=== PATIENT | male | born 1965 | race African-American/Black ===

== ENCOUNTER 2018-01-09 13:33 | Inpatient (IN) | payer MEDICAID ==
[~2018-01-09] VITALS: Ht 180.3 cm; Wt 149.9 kg
[2018-01-09] MEDS ORDERED: DIPH50 PO (14:49)
[2018-01-09] MEDS ORDERED: OLAN7.5T2 PO (14:49)
[2018-01-09 15:06] LABS: BASOPHILS % (AUTO) 0.9 % (0.0-2.0); EOSINOPHILS % (AUTO) 1.1 % (1.0-6.0); HEMOGLOBIN 13.2 g/dL (13.5-17.5); LYMPHOCYTES # (AUTO) 1.9 K/uL (1.0-4.8); LYMPHOCYTES % (AUTO) 22.8 % (22.0-44.0); MEAN CORPUSCULAR HGB CONC 33.9 G/dL (31.0-37.0); MEAN CORPUSCULAR VOLUME 86 fL (80-100); MONOCYTES % (AUTO) 12.2 % (2.0-9.0); NEUTROPHILS # (AUTO) 5.2 K/uL (1.8-7.7); PLATELET COUNT (AUTO) 274 K/uL (150-450); RED BLOOD CELL COUNT(AUTO) 4.56 MIL/uL (4.50-5.90); RED CELL DISTRIBUTION WIDTH 13.7 % (11.5-14.5)
[2018-01-09 15:47] LABS: ANION GAP 11 mmol/L (8-16); CALCIUM, TOTAL 8.8 mg/dL (8.8-10.5); CARBON DIOXIDE 26 mmol/L (22-29); CHLORIDE 103 mmol/L (98-107); CREATININE 1.25 mg/dL (0.60-1.30); GLOMERULAR FILTR. RATE CALC > 60 mL/min (>60); GLUCOSE,RANDOM 99 mg/dL (70-110); POTASSIUM 3.9 mmol/L (3.5-5.1); SODIUM SERUM 140 mmol/L (136-145); UREA NITROGEN, BLOOD 21 mg/dL (7-18)
[2018-01-09 15:53] LABS: ALANINE AMINOTRANSFERASE 42 U/L (12-78); ALBUMIN 3.6 g/dL (3.4-5.0); ALKALINE PHOSPHATASE 133 U/L (46-116); ASPARTATE AMINOTRANSFERASE 37 U/L (15-37); BILIRUBIN,TOTAL 0.6 mg/dL (0.1-1.0); TOTAL PROTEIN, SERUM 7.8 g/dL (6.4-8.2)
[2018-01-09 16:14] LABS: AMPHET/METH SCREEN,URINE NEGATIVE (NEGATIVE); BARBITURATE SCREEN, URINE NEGATIVE (NEGATIVE); BENZODIAZEPINES SCREEN,URINE NEGATIVE (NEGATIVE); CANNABINOID SCREEN,URINE POSITIVE (NEGATIVE); COCAINE SCREEN,URINE NEGATIVE (NEGATIVE); METHADONE SCREEN, URINE NEGATIVE (NEGATIVE); OPIATE SCREEN,URINE NEGATIVE (NEGATIVE)
[2018-01-09 16:16] LABS: PHENCYCLIDINE SCREEN,URINE NEGATIVE (NEGATIVE)
[2018-01-09] MEDS ORDERED: LORazepam 2 MG TABLET PO ONE (17:00)
[2018-01-09] MEDS ORDERED: OLANZapine 5 MG TABLET PO ONE (17:00)
[2018-01-09] MEDS ORDERED: DiphenhydrAMINE HCL 25 MG CAPSULE PO ONE (17:00)
[2018-01-09] MEDS ORDERED: HALOPERIDOL 5 MG TABLET PO PRN (19:00)
[2018-01-09 21:02] VITALS: BP 147/94
[2018-01-09] MEDS ORDERED: ACETAMINOPHEN 325 MG TABLET PO PRN (22:45)
[2018-01-09] MEDS ORDERED: MAGNESIUM HYDROXIDE SUSPENSION 30 ML UDCUP PO PRN (22:45)
[2018-01-09] MEDS ORDERED: ALBUTEROL SULFATE HFA 90 MCG/PUFF 8 GM INHALER IH PRN (22:45)
[2018-01-09] MEDS ORDERED: PETROLATUM,WHITE 71 GM JELLY TP PRN (22:45)
[2018-01-09] MEDS ORDERED: BENZOCAINE/MENTHOL LOZENGE MM PRN (22:45)
[2018-01-09] MEDS ORDERED: MAG HYDROX/AL HYDROX/SIMETH ES 30 ML SUSPENSION UDCUP PO PRN (22:45)
[2018-01-09] MEDS ORDERED: ONDANSETRON HCL 4 MG TABLET PO PRN (22:45)
[2018-01-09] MEDS ORDERED: LOPERAMIDE HCL 2 MG CAPSULE PO PRN (22:45)
[2018-01-09] MEDS ORDERED: BACITRACIN 28.4 GM OINTMENT TP PRN (22:45)
[2018-01-09] MEDS ORDERED: CloNIDine HCL 0.1 MG TABLET PO PRN (22:45)
[2018-01-10 02:05] VITALS: BP 134/90
[2018-01-10] MEDS: LORazepam 2 MG TABLET PO PRN (06:28)
[2018-01-10 06:31] VITALS: BP 159/71
[2018-01-10 07:13] LABS: CHOL/HDL RATIO 2.9 (4.2-7.3)
[2018-01-10] MEDS ORDERED: LISINOPRIL 10 MG TABLET PO SCH (09:00)
[2018-01-10] MEDS: DOCUSATE SODIUM 100 MG CAPSULE PO SCH (09:23)
[2018-01-10] MEDS: OMEPRAZOLE 20 MG CAPSULE PO SCH (09:23)
[2018-01-10] MEDS: NICOTINE 21 MG/24 HOUR PATCH TD SCH (09:27)
[2018-01-10] MEDS: IBUPROFEN 600 MG TABLET PO PRN (09:49)
[2018-01-10 09:50] VITALS: BP 147/77
[2018-01-10] MEDS: OLANZapine 7.5 MG TABLET PO SCH (16:14)
[2018-01-10] MEDS: DiphenhydrAMINE HCL 25 MG CAPSULE PO SCH (16:14)
[2018-01-10 17:17] VITALS: BP 164/115
[2018-01-10] MEDS ORDERED: AmLODIPine BESYLATE 5 MG TABLET PO ONE (18:15)
[2018-01-10] MEDS: ZOLPIDEM TARTRATE 10 MG TABLET PO PRN (20:19)
[2018-01-11] VITALS (7 sets, daily range): BP systolic 100–154; BP diastolic 67–95
[2018-01-11] MEDS: IBUPROFEN 600 MG TABLET PO PRN ×2 (06:53→16:16)
[2018-01-11] MEDS: LOSARTAN POTASSIUM 25 MG TABLET PO SCH (08:16)
[2018-01-11] MEDS: DiphenhydrAMINE HCL 25 MG CAPSULE PO SCH ×2 (08:16→16:12)
[2018-01-11] MEDS: HYDROCHLOROTHIAZIDE 25 MG TABLET PO SCH (08:16)
[2018-01-11] MEDS: NICOTINE 21 MG/24 HOUR PATCH TD SCH (08:16)
[2018-01-11] MEDS: FUROSEMIDE 20 MG TABLET PO SCH (08:16)
[2018-01-11] MEDS: OLANZapine 7.5 MG TABLET PO SCH ×2 (08:16→16:13)
[2018-01-11] MEDS: DOCUSATE SODIUM 100 MG CAPSULE PO SCH (08:16)
[2018-01-11] MEDS: OMEPRAZOLE 20 MG CAPSULE PO SCH (08:16)
[2018-01-11] MEDS: AmLODIPine BESYLATE 5 MG TABLET PO SCH (08:16)
[2018-01-11] MEDS: ZOLPIDEM TARTRATE 10 MG TABLET PO PRN (20:09)
[2018-01-11] MEDS ORDERED: NAPROXEN 500 MG TABLET PO PRN (20:15)
[2018-01-12 03:20] VITALS: BP 132/86
[2018-01-12 06:49] LABS: % IRON SATURATION 12.9 % (30-44)
[2018-01-12] MEDS: FUROSEMIDE 20 MG TABLET PO SCH (08:02)
[2018-01-12] MEDS: LOSARTAN POTASSIUM 25 MG TABLET PO SCH (08:02)
[2018-01-12] MEDS: DOCUSATE SODIUM 100 MG CAPSULE PO SCH (08:02)
[2018-01-12] MEDS: OLANZapine 7.5 MG TABLET PO SCH (08:02)
[2018-01-12] MEDS: AmLODIPine BESYLATE 5 MG TABLET PO SCH (08:02)
[2018-01-12] MEDS: DiphenhydrAMINE HCL 25 MG CAPSULE PO SCH (08:02)
[2018-01-12] MEDS: HYDROCHLOROTHIAZIDE 25 MG TABLET PO SCH (08:02)
[2018-01-12] MEDS: OMEPRAZOLE 20 MG CAPSULE PO SCH (08:02)
[2018-01-12] MEDS: LORazepam 2 MG TABLET PO PRN (08:03)
[2018-01-12] MEDS: NICOTINE 21 MG/24 HOUR PATCH TD SCH (08:03)
[2018-01-12] MEDS ORDERED: MOMETASONE FUROATE 50 MCG/SPRAY 17 GM NASAL SPRAY NASAL SCH (09:00)
[2018-01-12] MEDS ORDERED: AMLO-511 PO (10:27)
[2018-01-12] MEDS ORDERED: FURO20 PO (10:27)
[2018-01-12] MEDS ORDERED: DSS100 PO (10:27)
[2018-01-12] MEDS ORDERED: HYDR25TA PO (10:28)
[2018-01-12] MEDS ORDERED: LOSA25TA21 PO (10:28)
[2018-01-12] MEDS ORDERED: OMEP20 PO (10:29)
[2018-01-12] MEDS ORDERED: MOME17N NASAL (10:29)
[2018-01-12 10:37] VITALS: BP 145/76
== END 2018-01-12 13:10 | disposition home or self-care (01) | DRG 750 ==
LOC: EMS 13:33 → 3EI 19:55
PROVIDERS: ADMIT Psychiatry & Neurology Psychiatry; ATTEND Psychiatry & Neurology Psychiatry
DX: F25.9 Schizoaffective disorder, unspecified (principal); R45.851 Suicidal ideations; Z68.41 Body mass index [BMI] 40.0-44.9, adult; I10 Essential (primary) hypertension; F17.210 Nicotine dependence, cigarettes, uncomplicated; D50.9 Iron deficiency anemia, unspecified; R45.850 Homicidal ideations; F41.9 Anxiety disorder, unspecified; G47.00 Insomnia, unspecified; J44.9 Chronic obstructive pulmonary disease, unspecified; M19.90 Unspecified osteoarthritis, unspecified site; E66.9 Obesity, unspecified; F12.90 Cannabis use, unspecified, uncomplicated; Z91.19 Patient's noncompliance with other medical treatment and regimen; Z88.8 Allergy status to other drugs, medicaments and biological substances; Z79.899 Other long term (current) drug therapy; Z79.1 Long term (current) use of non-steroidal anti-inflammatories (NSAID); Z79.2 Long term (current) use of antibiotics; Z59.0 Homelessness
CPT/HCPCS: 83540; 83550; 99285; G0480

== ENCOUNTER 2018-01-13 04:14 | Inpatient (IN) | payer MEDICAID ==
[~2018-01-13] VITALS: Ht 180.3 cm; Wt 145.1 kg
[~2018-01-13 04:14] MED LIST: AMLO-511 PO; DIPH50 PO; DSS100 PO; FURO20 PO; HYDR25TA PO; LOSA25TA21 PO; MOME17N NASAL; OLAN7.5T2 PO; OMEP20 PO
[2018-01-13 04:59] LABS: AMPHET/METH SCREEN,URINE NEGATIVE (NEGATIVE); BARBITURATE SCREEN, URINE NEGATIVE (NEGATIVE); BENZODIAZEPINES SCREEN,URINE NEGATIVE (NEGATIVE); CANNABINOID SCREEN,URINE NEGATIVE (NEGATIVE); COCAINE SCREEN,URINE NEGATIVE (NEGATIVE); METHADONE SCREEN, URINE NEGATIVE (NEGATIVE); OPIATE SCREEN,URINE NEGATIVE (NEGATIVE)
[2018-01-13 05:00] LABS: PHENCYCLIDINE SCREEN,URINE NEGATIVE (NEGATIVE)
[2018-01-13 05:00] LABS: EOSINOPHILS % (AUTO) 0.4 % (1.0-6.0); HEMATOCRIT 43.3 % (41-53); HEMOGLOBIN 14.7 g/dL (13.5-17.5); LYMPHOCYTES # (AUTO) 2.1 K/uL (1.0-4.8); LYMPHOCYTES % (AUTO) 15.9 % (22.0-44.0); MEAN CORPUSCULAR HEMOGLOBIN 28.8 pg (26.0-34.0); MEAN CORPUSCULAR HGB CONC 33.9 G/dL (31.0-37.0); MEAN CORPUSCULAR VOLUME 85 fL (80-100); MONOCYTES # (AUTO) 1.6 K/uL (0.1-1.0); MONOCYTES % (AUTO) 12.6 % (2.0-9.0); NEUTROPHILS # (AUTO) 9.1 K/uL (1.8-7.7); NEUTROPHILS % (AUTO) 70.1 % (40.0-70.0); PLATELET COUNT (AUTO) 335 K/uL (150-450); RED CELL DISTRIBUTION WIDTH 13.9 % (11.5-14.5)
[2018-01-13 05:06] LABS: ANION GAP 8 mmol/L (8-16); CALCIUM, TOTAL 9.3 mg/dL (8.8-10.5); CARBON DIOXIDE 31 mmol/L (22-29); CHLORIDE 101 mmol/L (98-107); CREATININE 1.21 mg/dL (0.60-1.30); GLOMERULAR FILTR. RATE CALC > 60 mL/min (>60); GLUCOSE,RANDOM 100 mg/dL (70-110); SODIUM SERUM 140 mmol/L (136-145); UREA NITROGEN, BLOOD 15 mg/dL (7-18)
[2018-01-13 05:11] LABS: ALANINE AMINOTRANSFERASE 39 U/L (12-78); ALBUMIN 4.2 g/dL (3.4-5.0); ALKALINE PHOSPHATASE 149 U/L (46-116); ASPARTATE AMINOTRANSFERASE 24 U/L (15-37); BILIRUBIN,TOTAL 0.6 mg/dL (0.1-1.0); TOTAL PROTEIN, SERUM 8.8 g/dL (6.4-8.2)
[2018-01-13 10:50] VITALS: BP 161/76
[2018-01-13] MEDS ORDERED: NAPROXEN 500 MG TABLET PO PRN (11:00)
[2018-01-13] MEDS ORDERED: OMEPRAZOLE 20 MG CAPSULE PO SCH (11:00)
[2018-01-13] MEDS ORDERED: CloNIDine HCL 0.1 MG TABLET PO PRN (11:00)
[2018-01-13] MEDS: DIVALPROEX SODIUM 500 MG ER TABLET PO SCH ×2 (11:34→16:50)
[2018-01-13] MEDS: AmLODIPine BESYLATE 5 MG TABLET PO SCH (11:34)
[2018-01-13] MEDS: NICOTINE 21 MG/24 HOUR PATCH TD SCH (11:34)
[2018-01-13] MEDS: HYDROCHLOROTHIAZIDE 25 MG TABLET PO SCH (11:34)
[2018-01-13] MEDS: FUROSEMIDE 20 MG TABLET PO SCH (11:34)
[2018-01-13] MEDS ORDERED: ALBUTEROL SULFATE HFA 90 MCG/PUFF 8 GM INHALER IH PRN (11:45)
[2018-01-13] MEDS ORDERED: ACETAMINOPHEN 325 MG TABLET PO PRN (11:45)
[2018-01-13] MEDS: LOSARTAN POTASSIUM 25 MG TABLET PO SCH (12:42)
[2018-01-13] MEDS ORDERED: LORazepam 2 MG/ML VIAL IM ONE (14:15)
[2018-01-13] MEDS ORDERED: DiphenhydrAMINE HCL 50 MG/ML VIAL IM ONE (14:15)
[2018-01-13] MEDS ORDERED: DiphenhydrAMINE HCL 50 MG/ML VIAL ONE (14:20)
[2018-01-13] MEDS: OLANZapine 5 MG RAPDIS TABLET PO PRN (14:29)
[2018-01-13] MEDS: LORazepam 2 MG TABLET PO PRN (14:29)
[2018-01-13 15:20] VITALS: BP 137/84
[2018-01-13 16:00] VITALS: BP 115/73
[2018-01-14] MEDS ORDERED: MAGNESIUM HYDROXIDE SUSPENSION 30 ML UDCUP PO PRN
[2018-01-14] MEDS ORDERED: LOPERAMIDE HCL 2 MG CAPSULE PO PRN
[2018-01-14] MEDS ORDERED: PETROLATUM,WHITE 71 GM JELLY TP PRN
[2018-01-14] MEDS ORDERED: ONDANSETRON HCL 4 MG TABLET PO PRN
[2018-01-14] MEDS ORDERED: CloNIDine HCL 0.1 MG TABLET PO PRN
[2018-01-14] MEDS ORDERED: MAG HYDROX/AL HYDROX/SIMETH ES 30 ML SUSPENSION UDCUP PO PRN
[2018-01-14] MEDS ORDERED: BENZOCAINE/MENTHOL LOZENGE MM PRN
[2018-01-14 01:48] VITALS: BP 145/63
[2018-01-14] MEDS: IBUPROFEN 600 MG TABLET PO PRN (01:50)
[2018-01-14] MEDS: OLANZapine 5 MG RAPDIS TABLET PO PRN ×2 (03:26→16:13)
[2018-01-14] MEDS: LORazepam 2 MG TABLET PO PRN ×2 (03:26→16:13)
[2018-01-14] MEDS: DIVALPROEX SODIUM 500 MG ER TABLET PO SCH ×2 (08:20→16:13)
[2018-01-14] MEDS: FUROSEMIDE 20 MG TABLET PO SCH (08:20)
[2018-01-14] MEDS: HYDROCHLOROTHIAZIDE 25 MG TABLET PO SCH (08:20)
[2018-01-14] MEDS: LOSARTAN POTASSIUM 25 MG TABLET PO SCH (08:21)
[2018-01-14] MEDS: OMEPRAZOLE 20 MG CAPSULE PO SCH (08:21)
[2018-01-14] MEDS: AmLODIPine BESYLATE 5 MG TABLET PO SCH (08:21)
[2018-01-14] MEDS: DOCUSATE SODIUM 100 MG CAPSULE PO SCH (08:21)
[2018-01-14] MEDS: NICOTINE 21 MG/24 HOUR PATCH TD SCH (08:21)
[2018-01-14 08:30] VITALS: BP 139/72
[2018-01-14] MEDS: BACITRACIN 28.4 GM OINTMENT TP PRN (10:23)
[2018-01-14 16:05] VITALS: BP 125/78
[2018-01-14] MEDS: BUDESONIDE/FORMOTEROL FUMARATE 80-4.5 MCG/PUFF 6.9 GM INHALER IH SCH (16:11)
[2018-01-14] MEDS ORDERED: FORMOTEROL FUMARATE IH SCH (17:00)
[2018-01-14] MEDS: ZOLPIDEM TARTRATE 10 MG TABLET PO PRN (23:34)
[2018-01-15 01:17] VITALS: BP 136/89
[2018-01-15] MEDS: IBUPROFEN 600 MG TABLET PO PRN ×2 (03:57→20:38)
[2018-01-15] MEDS: LORazepam 2 MG TABLET PO PRN ×2 (03:57→17:17)
[2018-01-15] MEDS: OLANZapine 5 MG RAPDIS TABLET PO PRN ×2 (05:01→17:17)
[2018-01-15] MEDS: DOCUSATE SODIUM 100 MG CAPSULE PO SCH (08:03)
[2018-01-15] MEDS: BUDESONIDE/FORMOTEROL FUMARATE 80-4.5 MCG/PUFF 6.9 GM INHALER IH SCH ×2 (08:03→16:57)
[2018-01-15] MEDS: NICOTINE 21 MG/24 HOUR PATCH TD SCH (08:03)
[2018-01-15] MEDS: DIVALPROEX SODIUM 500 MG ER TABLET PO SCH ×2 (08:03→16:57)
[2018-01-15] MEDS: HYDROCHLOROTHIAZIDE 25 MG TABLET PO SCH (08:03)
[2018-01-15] MEDS: AmLODIPine BESYLATE 5 MG TABLET PO SCH (08:03)
[2018-01-15] MEDS: BACITRACIN 28.4 GM OINTMENT TP PRN (08:03)
[2018-01-15] MEDS: FUROSEMIDE 20 MG TABLET PO SCH (08:03)
[2018-01-15] MEDS: OMEPRAZOLE 20 MG CAPSULE PO SCH (08:03)
[2018-01-15] MEDS: LOSARTAN POTASSIUM 25 MG TABLET PO SCH (08:04)
[2018-01-15 08:22] VITALS: BP 132/81
[2018-01-15 08:48] LABS: BASOPHILS % (AUTO) 1.3 % (0.0-2.0); EOSINOPHILS % (AUTO) 2.1 % (1.0-6.0); HEMATOCRIT 40.6 % (41-53); HEMOGLOBIN 13.8 g/dL (13.5-17.5); LYMPHOCYTES # (AUTO) 1.9 K/uL (1.0-4.8); LYMPHOCYTES % (AUTO) 22.1 % (22.0-44.0); MEAN CORPUSCULAR HEMOGLOBIN 28.8 pg (26.0-34.0); MEAN CORPUSCULAR HGB CONC 33.9 G/dL (31.0-37.0); MEAN CORPUSCULAR VOLUME 85 fL (80-100); MONOCYTES # (AUTO) 0.8 K/uL (0.1-1.0); MONOCYTES % (AUTO) 9.9 % (2.0-9.0); NEUTROPHILS # (AUTO) 5.5 K/uL (1.8-7.7); NEUTROPHILS % (AUTO) 64.6 % (40.0-70.0); PLATELET COUNT (AUTO) 307 K/uL (150-450); RED BLOOD CELL COUNT(AUTO) 4.77 MIL/uL (4.50-5.90)
[2018-01-15] MEDS: MUPIROCIN CALCIUM 2% 22 GM OINTMENT NASAL SCH ×2 (11:44→16:58)
[2018-01-15] MEDS: TAMSULOSIN HCL 0.4 MG CAPSULE PO SCH (14:05)
[2018-01-15 16:36] VITALS: BP 141/95
[2018-01-15] MEDS: ZOLPIDEM TARTRATE 10 MG TABLET PO PRN (20:38)
[2018-01-16 01:34] VITALS: BP 135/77
[2018-01-16] MEDS: LORazepam 2 MG TABLET PO PRN ×2 (01:38→12:20)
[2018-01-16] MEDS: OLANZapine 5 MG RAPDIS TABLET PO PRN (01:38)
[2018-01-16] MEDS: IBUPROFEN 600 MG TABLET PO PRN (01:39)
[2018-01-16 08:04] VITALS: BP 148/92
[2018-01-16] MEDS: BUDESONIDE/FORMOTEROL FUMARATE 80-4.5 MCG/PUFF 6.9 GM INHALER IH SCH ×2 (08:04→16:16)
[2018-01-16] MEDS: MUPIROCIN CALCIUM 2% 22 GM OINTMENT NASAL SCH ×2 (08:04→16:16)
[2018-01-16] MEDS: DIVALPROEX SODIUM 500 MG ER TABLET PO SCH ×2 (08:05→16:21)
[2018-01-16] MEDS: AmLODIPine BESYLATE 5 MG TABLET PO SCH (08:05)
[2018-01-16] MEDS: FUROSEMIDE 20 MG TABLET PO SCH (08:05)
[2018-01-16] MEDS: DOCUSATE SODIUM 100 MG CAPSULE PO SCH (08:05)
[2018-01-16] MEDS: LOSARTAN POTASSIUM 25 MG TABLET PO SCH (08:05)
[2018-01-16] MEDS: OMEPRAZOLE 20 MG CAPSULE PO SCH (08:05)
[2018-01-16] MEDS: TAMSULOSIN HCL 0.4 MG CAPSULE PO SCH (08:05)
[2018-01-16] MEDS: HYDROCHLOROTHIAZIDE 25 MG TABLET PO SCH (08:05)
[2018-01-16] MEDS: NICOTINE 21 MG/24 HOUR PATCH TD SCH (08:07)
[2018-01-16] MEDS ORDERED: TAMS0.4C32 PO (16:16)
[2018-01-16] MEDS ORDERED: DIVA500T52 PO (16:16)
[2018-01-16] MEDS ORDERED: HYDR25TA PO (16:16)
[2018-01-16 16:20] VITALS: BP 130/84
== END 2018-01-16 16:40 | disposition home or self-care (01) | DRG 750 ==
LOC: EMS 04:15 → B2S 06:06 → B3A 15:30
PROVIDERS: ADMIT Psychiatry & Neurology Psychiatry; ATTEND Psychiatry & Neurology Psychiatry
DX: F25.1 Schizoaffective disorder, depressive type (principal); R45.851 Suicidal ideations; Z68.41 Body mass index [BMI] 40.0-44.9, adult; I10 Essential (primary) hypertension; J44.9 Chronic obstructive pulmonary disease, unspecified; M19.90 Unspecified osteoarthritis, unspecified site; F12.90 Cannabis use, unspecified, uncomplicated; N40.0 Benign prostatic hyperplasia without lower urinary tract symptoms; E66.9 Obesity, unspecified; F41.9 Anxiety disorder, unspecified; G47.00 Insomnia, unspecified; F17.210 Nicotine dependence, cigarettes, uncomplicated; Z88.8 Allergy status to other drugs, medicaments and biological substances; Z79.899 Other long term (current) drug therapy; Z71.6 Tobacco abuse counseling
CPT/HCPCS: 87081; 99285; G0480; J1200; J2060; J3535

== ENCOUNTER 2018-03-06 02:44 | Inpatient (IN) | payer MEDICAID ==
[~2018-03-06] VITALS: Ht 185.4 cm; Wt 138.3 kg
[~2018-03-06 02:44] MED LIST changes: -DIPH50 PO; +DIVA500T52 PO; +MIRT30 PO; -MOME17N NASAL; +NAPR250T4 PO; +OLAN10TA20 PO; -OLAN7.5T2 PO; +TAMS0.4C32 PO; +VITAD1000 PO
[2018-03-06 03:56] LABS: BASOPHILS % (AUTO) 0.9 % (0.0-2.0); EOSINOPHILS % (AUTO) 1.6 % (1.0-6.0); HEMATOCRIT 39.8 % (41-53); HEMOGLOBIN 13.4 g/dL (13.5-17.5); LYMPHOCYTES # (AUTO) 2.1 K/uL (1.0-4.8); LYMPHOCYTES % (AUTO) 24.9 % (22.0-44.0); MEAN CORPUSCULAR HEMOGLOBIN 28.2 pg (26.0-34.0); MEAN CORPUSCULAR HGB CONC 33.8 G/dL (31.0-37.0); MEAN CORPUSCULAR VOLUME 84 fL (80-100); MONOCYTES % (AUTO) 11.6 % (2.0-9.0); NEUTROPHILS # (AUTO) 5.1 K/uL (1.8-7.7); PLATELET COUNT (AUTO) 234 K/uL (150-450); RED BLOOD CELL COUNT(AUTO) 4.76 MIL/uL (4.50-5.90); RED CELL DISTRIBUTION WIDTH 14.7 % (11.5-14.5)
[2018-03-06 03:58] LABS: ANION GAP 4 mmol/L (8-16); CALCIUM, TOTAL 8.9 mg/dL (8.8-10.5); CARBON DIOXIDE 35 mmol/L (22-29); CHLORIDE 104 mmol/L (98-107); CREATININE 1.17 mg/dL (0.60-1.30); GLOMERULAR FILTR. RATE CALC > 60 mL/min (>60); GLUCOSE,RANDOM 100 mg/dL (70-110); POTASSIUM 3.7 mmol/L (3.5-5.1); SODIUM SERUM 143 mmol/L (136-145); UREA NITROGEN, BLOOD 20 mg/dL (7-18)
[2018-03-06 04:04] LABS: ALANINE AMINOTRANSFERASE 28 U/L (12-78); ALBUMIN 3.8 g/dL (3.4-5.0); ALKALINE PHOSPHATASE 87 U/L (46-116); ASPARTATE AMINOTRANSFERASE 24 U/L (15-37); BILIRUBIN,TOTAL 0.5 mg/dL (0.1-1.0); TOTAL PROTEIN, SERUM 7.5 g/dL (6.4-8.2); VALPROIC ACID 20 mcg/mL (50-100)
[2018-03-06 04:51] LABS: AMPHET/METH SCREEN,URINE NEGATIVE (NEGATIVE); BARBITURATE SCREEN, URINE NEGATIVE (NEGATIVE); BENZODIAZEPINES SCREEN,URINE NEGATIVE (NEGATIVE); CANNABINOID SCREEN,URINE POSITIVE (NEGATIVE); COCAINE SCREEN,URINE NEGATIVE (NEGATIVE); METHADONE SCREEN, URINE NEGATIVE (NEGATIVE); OPIATE SCREEN,URINE NEGATIVE (NEGATIVE)
[2018-03-06 04:52] LABS: PHENCYCLIDINE SCREEN,URINE NEGATIVE (NEGATIVE)
[2018-03-06] MEDS ORDERED: ACETAMINOPHEN 325 MG TABLET PO PRN (09:45)
[2018-03-06] MEDS: IBUPROFEN 400 MG TABLET PO PRN (12:18)
[2018-03-06 13:29] LABS: APPEARANCE,URINE CLEAR (CLEAR); BILIRUBIN,URINE NEGATIVE (NEGATIVE); GLUCOSE, URINE (UA) NEGATIVE (NEGATIVE); KETONES,URINE NEGATIVE (NEGATIVE); LEUKOCYTE ESTERASE ,URINE NEGATIVE (NEGATIVE); NITRATE,URINE NEGATIVE (NEGATIVE); OCCULT BLOOD,URINE NEGATIVE (NEGATIVE); PH,URINE 6.5 (5.0-8.0)
[2018-03-06 13:35] LABS: AMPHET/METH SCREEN,URINE NEGATIVE (NEGATIVE); BARBITURATE SCREEN, URINE NEGATIVE (NEGATIVE); BENZODIAZEPINES SCREEN,URINE NEGATIVE (NEGATIVE); CANNABINOID SCREEN,URINE POSITIVE (NEGATIVE); COCAINE SCREEN,URINE NEGATIVE (NEGATIVE); METHADONE SCREEN, URINE NEGATIVE (NEGATIVE); OPIATE SCREEN,URINE NEGATIVE (NEGATIVE); PHENCYCLIDINE SCREEN,URINE NEGATIVE (NEGATIVE)
[2018-03-06] MEDS: LORazepam 2 MG TABLET PO PRN ×2 (13:39→20:40)
[2018-03-06] MEDS: OLANZapine 5 MG RAPDIS TABLET PO PRN ×2 (13:39→20:40)
[2018-03-06 14:41] LABS: PROTEIN,URINE NEGATIVE (NEGATIVE)
[2018-03-07 00:26] VITALS: BP 152/100
[2018-03-07] MEDS: ZOLPIDEM TARTRATE 10 MG TABLET PO PRN (00:27)
[2018-03-07] MEDS ORDERED: MAGNESIUM HYDROXIDE SUSPENSION 30 ML UDCUP PO PRN (06:00)
[2018-03-07] MEDS ORDERED: MAG HYDROX/AL HYDROX/SIMETH ES 30 ML SUSPENSION UDCUP PO PRN (06:00)
[2018-03-07] MEDS ORDERED: LOPERAMIDE HCL 2 MG CAPSULE PO PRN (06:00)
[2018-03-07] MEDS ORDERED: IBUPROFEN 400 MG TABLET PO PRN (06:00)
[2018-03-07] MEDS ORDERED: PNEUMOCOCCAL VACCINE POLYVALENT 0.5 ML VIAL [PPSV23] IM ONE (06:00)
[2018-03-07] MEDS ORDERED: ACETAMINOPHEN 325 MG TABLET PO PRN (06:00)
[2018-03-07] MEDS ORDERED: PETROLATUM,WHITE 71 GM JELLY TP PRN (06:00)
[2018-03-07] MEDS ORDERED: ONDANSETRON HCL 4 MG TABLET PO PRN (06:00)
[2018-03-07] MEDS ORDERED: ALBUTEROL SULFATE HFA 90 MCG/PUFF 8 GM INHALER IH PRN (06:00)
[2018-03-07] MEDS ORDERED: CloNIDine HCL 0.1 MG TABLET PO PRN (06:00)
[2018-03-07] MEDS ORDERED: DOCUSATE SODIUM 100 MG CAPSULE PO PRN (06:00)
[2018-03-07 08:10] LABS: EOSINOPHILS % (AUTO) 3.2 % (1.0-6.0); HEMATOCRIT 41.7 % (41-53); HEMOGLOBIN 14.1 g/dL (13.5-17.5); LYMPHOCYTES # (AUTO) 1.6 K/uL (1.0-4.8); LYMPHOCYTES % (AUTO) 27.9 % (22.0-44.0); MEAN CORPUSCULAR HEMOGLOBIN 28.5 pg (26.0-34.0); MEAN CORPUSCULAR HGB CONC 33.8 G/dL (31.0-37.0); MEAN CORPUSCULAR VOLUME 85 fL (80-100); MONOCYTES # (AUTO) 0.6 K/uL (0.1-1.0); MONOCYTES % (AUTO) 10.3 % (2.0-9.0); NEUTROPHILS # (AUTO) 3.3 K/uL (1.8-7.7); NEUTROPHILS % (AUTO) 56.6 % (40.0-70.0); PLATELET COUNT (AUTO) 225 K/uL (150-450); RED BLOOD CELL COUNT(AUTO) 4.93 MIL/uL (4.50-5.90); RED CELL DISTRIBUTION WIDTH 14.5 % (11.5-14.5)
[2018-03-07 08:16] VITALS: BP 153/94
[2018-03-07 08:30] LABS: ALANINE AMINOTRANSFERASE 24 U/L (12-78); ALBUMIN 3.1 g/dL (3.4-5.0); ALKALINE PHOSPHATASE 81 U/L (46-116); ANION GAP 4 mmol/L (8-16); ASPARTATE AMINOTRANSFERASE 16 U/L (15-37); BILIRUBIN,TOTAL 0.2 mg/dL (0.1-1.0); CALCIUM, TOTAL 8.6 mg/dL (8.8-10.5); CARBON DIOXIDE 32 mmol/L (22-29); CHLORIDE 105 mmol/L (98-107); CHOL/HDL RATIO 3.3 (4.2-7.3); CHOLESTEROL 130 mg/dL (131-200); CREATININE 1.02 mg/dL (0.60-1.30); GLOMERULAR FILTR. RATE CALC > 60 mL/min (>60); GLUCOSE,RANDOM 87 mg/dL (70-110); HDL CHOLESTEROL 39 mg/dL (40-60); LDL CHOL (CALC.) 73 mg/dL (0-130); SODIUM SERUM 141 mmol/L (136-145); THYROID STIMULATING HORMONE 1.42 uIU/mL (0.36-3.74); TOTAL PROTEIN, SERUM 6.6 g/dL (6.4-8.2); TRIGLYCERIDES 89 mg/dL (15-150); UREA NITROGEN, BLOOD 18 mg/dL (7-18)
[2018-03-07] MEDS: LORazepam 2 MG TABLET PO PRN ×3 (09:16→20:09)
[2018-03-07] MEDS: OLANZapine 5 MG RAPDIS TABLET PO PRN ×2 (09:16→13:20)
[2018-03-07] MEDS: FUROSEMIDE 20 MG TABLET PO SCH (12:45)
[2018-03-07] MEDS: HYDROCHLOROTHIAZIDE 25 MG TABLET PO SCH (12:45)
[2018-03-07] MEDS: TAMSULOSIN HCL 0.4 MG CAPSULE PO SCH (12:46)
[2018-03-07] MEDS: AmLODIPine BESYLATE 5 MG TABLET PO SCH (12:46)
[2018-03-07 14:46] VITALS: BP 146/95
[2018-03-07 16:00] VITALS: BP 160/87
[2018-03-07] MEDS: NAPROXEN 250 MG TABLET PO SCH (16:07)
[2018-03-07] MEDS: LOSARTAN POTASSIUM 25 MG TABLET PO SCH (16:07)
[2018-03-07] MEDS: DIVALPROEX SODIUM 500 MG ER TABLET PO SCH (16:08)
[2018-03-07] MEDS: TERBINAFINE HCL 1% 30 GM CREAM TP SCH (16:08)
[2018-03-07] MEDS: OLANZapine 10 MG TABLET PO SCH (16:08)
[2018-03-07 17:50] VITALS: BP 145/82
[2018-03-07] MEDS ORDERED: MIRTAZAPINE 30 MG TABLET PO SCH (21:00)
[2018-03-08 00:27] VITALS: BP 135/86
[2018-03-08] MEDS: ZOLPIDEM TARTRATE 10 MG TABLET PO PRN (03:02)
[2018-03-08] MEDS: IBUPROFEN 400 MG TABLET PO PRN (06:34)
[2018-03-08 07:35] VITALS: BP 163/107
[2018-03-08] MEDS: LOSARTAN POTASSIUM 25 MG TABLET PO SCH (08:08)
[2018-03-08] MEDS: TERBINAFINE HCL 1% 30 GM CREAM TP SCH (08:08)
[2018-03-08] MEDS: NAPROXEN 250 MG TABLET PO SCH (08:09)
[2018-03-08] MEDS: TAMSULOSIN HCL 0.4 MG CAPSULE PO SCH (08:09)
[2018-03-08] MEDS: HYDROCHLOROTHIAZIDE 25 MG TABLET PO SCH (08:09)
[2018-03-08] MEDS: AmLODIPine BESYLATE 5 MG TABLET PO SCH (08:09)
[2018-03-08] MEDS: DIVALPROEX SODIUM 500 MG ER TABLET PO SCH (08:09)
[2018-03-08] MEDS: FUROSEMIDE 20 MG TABLET PO SCH (08:09)
[2018-03-08] MEDS: LORazepam 2 MG TABLET PO PRN (08:09)
[2018-03-08] MEDS: OLANZapine 10 MG TABLET PO SCH (08:09)
[2018-03-08] MEDS ORDERED: CHOLECALCIFEROL (VIT D3) 1,000 UNITS TABLET PO SCH (09:00)
[2018-03-08] MEDS ORDERED: OMEPRAZOLE 20 MG CAPSULE PO SCH (09:00)
[2018-03-08 10:32] VITALS: BP 163/107
== END 2018-03-08 13:15 | disposition home or self-care (01) | DRG 750 ==
LOC: EMS 02:44 → B3A 21:00
PROVIDERS: ADMIT Psychiatry & Neurology Psychiatry; ATTEND Psychiatry & Neurology Psychiatry
DX: F25.0 Schizoaffective disorder, bipolar type (principal); I11.0 Hypertensive heart disease with heart failure; R45.851 Suicidal ideations; I50.9 Heart failure, unspecified; F12.10 Cannabis abuse, uncomplicated; J45.909 Unspecified asthma, uncomplicated; M19.90 Unspecified osteoarthritis, unspecified site; F17.210 Nicotine dependence, cigarettes, uncomplicated; E55.9 Vitamin D deficiency, unspecified; K59.09 Other constipation; K21.9 Gastro-esophageal reflux disease without esophagitis; F41.9 Anxiety disorder, unspecified; N40.0 Benign prostatic hyperplasia without lower urinary tract symptoms; F60.3 Borderline personality disorder; F10.20 Alcohol dependence, uncomplicated; E66.9 Obesity, unspecified; Z59.0 Homelessness; Z88.8 Allergy status to other drugs, medicaments and biological substances; Z91.5 Personal history of self-harm; Z91.19 Patient's noncompliance with other medical treatment and regimen
CPT/HCPCS: 83036; 84443; 87081; 90471; 99285; G0480

== ENCOUNTER 2018-05-12 04:09 | Emergency (ER) | payer MEDICAID ==
[~2018-05-12] VITALS: Ht 180.3 cm; Wt 125.0 kg
[~2018-05-12 04:09] MED LIST changes: +LOSA25TA16 PO; -LOSA25TA21 PO
[2018-05-12 04:45] LABS: BASOPHILS % (AUTO) 0.6 % (0.0-2.0); EOSINOPHILS % (AUTO) 0.8 % (1.0-6.0); HEMATOCRIT 42.2 % (41-53); HEMOGLOBIN 14.2 g/dL (13.5-17.5); LYMPHOCYTES # (AUTO) 2.4 K/uL (1.0-4.8); MEAN CORPUSCULAR HEMOGLOBIN 28.6 pg (26.0-34.0); MEAN CORPUSCULAR HGB CONC 33.7 G/dL (31.0-37.0); MEAN CORPUSCULAR VOLUME 85 fL (80-100); MONOCYTES # (AUTO) 0.9 K/uL (0.1-1.0); MONOCYTES % (AUTO) 9.9 % (2.0-9.0); NEUTROPHILS # (AUTO) 6.1 K/uL (1.8-7.7); NEUTROPHILS % (AUTO) 63.7 % (40.0-70.0); PLATELET COUNT (AUTO) 209 K/uL (150-450); RED BLOOD CELL COUNT(AUTO) 4.96 MIL/uL (4.50-5.90); RED CELL DISTRIBUTION WIDTH 14.6 % (11.5-14.5)
[2018-05-12 04:52] LABS: ANION GAP 6 mmol/L (8-16); CARBON DIOXIDE 31 mmol/L (22-29); CHLORIDE 105 mmol/L (98-107); CREATININE 1.25 mg/dL (0.60-1.30); GLOMERULAR FILTR. RATE CALC > 60 mL/min (>60); GLUCOSE,RANDOM 83 mg/dL (70-110); POTASSIUM 4.1 mmol/L (3.5-5.1); SODIUM SERUM 142 mmol/L (136-145); UREA NITROGEN, BLOOD 17 mg/dL (7-18)
[2018-05-12] MEDS ORDERED: LORazepam 2 MG TABLET PO ONE (05:00)
[2018-05-12] MEDS ORDERED: OLANZapine 5 MG TABLET PO ONE (05:00)
[2018-05-12 05:01] LABS: ALANINE AMINOTRANSFERASE 36 U/L (12-78); ALBUMIN 3.8 g/dL (3.4-5.0); ALKALINE PHOSPHATASE 88 U/L (46-116); ASPARTATE AMINOTRANSFERASE 36 U/L (15-37); BILIRUBIN,TOTAL 0.6 mg/dL (0.1-1.0); TOTAL PROTEIN, SERUM 7.8 g/dL (6.4-8.2); VALPROIC ACID 9 mcg/mL (50-100)
[2018-05-12 05:20] VITALS: BP 146/81
[2018-05-12] MEDS ORDERED: ACETAMINOPHEN 500 MG TABLET PO ONE (05:45)
== END 2018-05-12 05:50 | disposition home or self-care (01) ==
LOC: EMS 04:10
DX: F20.9 Schizophrenia, unspecified (principal); F15.90 Other stimulant use, unspecified, uncomplicated; J45.909 Unspecified asthma, uncomplicated; I10 Essential (primary) hypertension; M19.90 Unspecified osteoarthritis, unspecified site; F17.210 Nicotine dependence, cigarettes, uncomplicated; F12.90 Cannabis use, unspecified, uncomplicated; Z88.8 Allergy status to other drugs, medicaments and biological substances
CPT/HCPCS: 36415; 80053; 80164; 85025; 99285; G0480

== ENCOUNTER 2018-05-27 00:24 | Inpatient (IN) | payer MEDICAID ==
[~2018-05-27] VITALS: Ht 180.3 cm; Wt 128.4 kg
[2018-05-27] MEDS ORDERED: ACETAMINOPHEN 325 MG TABLET PO ONE (01:15)
[2018-05-27 01:35] LABS: BASOPHILS % (AUTO) 0.9 % (0.0-2.0); EOSINOPHILS % (AUTO) 1.8 % (1.0-6.0); LYMPHOCYTES # (AUTO) 2.4 K/uL (1.0-4.8); LYMPHOCYTES % (AUTO) 32.5 % (22.0-44.0); MEAN CORPUSCULAR HEMOGLOBIN 28.8 pg (26.0-34.0); MEAN CORPUSCULAR HGB CONC 33.4 G/dL (31.0-37.0); MEAN CORPUSCULAR VOLUME 86 fL (80-100); MONOCYTES # (AUTO) 0.9 K/uL (0.1-1.0); MONOCYTES % (AUTO) 11.8 % (2.0-9.0); NEUTROPHILS # (AUTO) 3.9 K/uL (1.8-7.7); PLATELET COUNT (AUTO) 248 K/uL (150-450); RED BLOOD CELL COUNT(AUTO) 4.87 MIL/uL (4.50-5.90); RED CELL DISTRIBUTION WIDTH 15.3 % (11.5-14.5)
[2018-05-27 01:49] LABS: ANION GAP 3 mmol/L (8-16); CALCIUM, TOTAL 9.2 mg/dL (8.8-10.5); CARBON DIOXIDE 34 mmol/L (22-29); CHLORIDE 105 mmol/L (98-107); CREATININE 1.27 mg/dL (0.60-1.30); GLOMERULAR FILTR. RATE CALC 60 mL/min (>60); GLUCOSE,RANDOM 97 mg/dL (70-110); POTASSIUM 4.7 mmol/L (3.5-5.1); SODIUM SERUM 142 mmol/L (136-145); UREA NITROGEN, BLOOD 18 mg/dL (7-18)
[2018-05-27 01:56] LABS: ALANINE AMINOTRANSFERASE 28 U/L (12-78); ALBUMIN 3.7 g/dL (3.4-5.0); ALKALINE PHOSPHATASE 90 U/L (46-116); ASPARTATE AMINOTRANSFERASE 22 U/L (15-37); BILIRUBIN,TOTAL 0.4 mg/dL (0.1-1.0); TOTAL PROTEIN, SERUM 7.6 g/dL (6.4-8.2); VALPROIC ACID 8 mcg/mL (50-100)
[2018-05-27] MEDS ORDERED: LORazepam 2 MG TABLET PO PRN (02:30)
[2018-05-27] MEDS ORDERED: ZOLPIDEM TARTRATE 10 MG TABLET PO PRN (02:30)
[2018-05-27] MEDS ORDERED: HALOPERIDOL 5 MG TABLET PO PRN (02:30)
[2018-05-27] MEDS ORDERED: PNEUMOCOCCAL VACCINE POLYVALENT 0.5 ML VIAL [PPSV23] IM ONE (04:30)
[2018-05-27 04:31] VITALS: BP 149/95
[2018-05-27 08:30] VITALS: BP 158/96
[2018-05-27] MEDS ORDERED: NICOTINE 14 MG/24 HOUR PATCH TD PRN (11:00)
[2018-05-27] MEDS ORDERED: GuaiFENesin/D-METHORPHAN [SUGAR-FREE] 200-20MG/10 ML SYRUP UDCUP PO PRN (11:00)
[2018-05-27] MEDS ORDERED: CloNIDine HCL 0.1 MG TABLET PO PRN (11:00)
[2018-05-27] MEDS ORDERED: MAG HYDROX/AL HYDROX/SIMETH ES 30 ML SUSPENSION UDCUP PO PRN (11:00)
[2018-05-27] MEDS ORDERED: ACETAMINOPHEN 325 MG TABLET PO PRN (11:00)
[2018-05-27] MEDS ORDERED: ALBUTEROL SULFATE HFA 90 MCG/PUFF 8 GM INHALER IH PRN (11:00)
[2018-05-27] MEDS ORDERED: LOPERAMIDE HCL 2 MG CAPSULE PO PRN (11:00)
[2018-05-27] MEDS ORDERED: PETROLATUM,WHITE 71 GM JELLY TP PRN (11:00)
[2018-05-27] MEDS ORDERED: MAGNESIUM HYDROXIDE SUSPENSION 30 ML UDCUP PO PRN (11:00)
[2018-05-27] MEDS ORDERED: ONDANSETRON HCL 4 MG TABLET PO PRN (11:00)
[2018-05-27] MEDS: DIVALPROEX SODIUM 500 MG ER TABLET PO SCH (17:23)
[2018-05-27] MEDS: OLANZapine 10 MG TABLET PO SCH (17:23)
[2018-05-27 20:02] VITALS: BP 149/82
[2018-05-27] MEDS: MIRTAZAPINE 30 MG TABLET PO SCH (21:18)
[2018-05-28 06:25] VITALS: BP 150/84
[2018-05-28] MEDS: IBUPROFEN 400 MG TABLET PO PRN (06:26)
[2018-05-28 06:34] LABS: HEMATOCRIT 42.2 % (41-53); HEMOGLOBIN 14.1 g/dL (13.5-17.5); LYMPHOCYTES # (AUTO) 1.5 K/uL (1.0-4.8); LYMPHOCYTES % (AUTO) 24.7 % (22.0-44.0); MEAN CORPUSCULAR HGB CONC 33.5 G/dL (31.0-37.0); MEAN CORPUSCULAR VOLUME 87 fL (80-100); MONOCYTES # (AUTO) 0.7 K/uL (0.1-1.0); NEUTROPHILS # (AUTO) 3.7 K/uL (1.8-7.7); NEUTROPHILS % (AUTO) 61.3 % (40.0-70.0); PLATELET COUNT (AUTO) 245 K/uL (150-450); RED BLOOD CELL COUNT(AUTO) 4.86 MIL/uL (4.50-5.90); RED CELL DISTRIBUTION WIDTH 15.9 % (11.5-14.5)
[2018-05-28 06:40] LABS: HEMOGLOBIN A1C 5.2 % (4.5-6.2)
[2018-05-28 07:03] LABS: ALANINE AMINOTRANSFERASE 24 U/L (12-78); ALBUMIN 3.1 g/dL (3.4-5.0); ALKALINE PHOSPHATASE 78 U/L (46-116); ANION GAP 5 mmol/L (8-16); ASPARTATE AMINOTRANSFERASE 19 U/L (15-37); BILIRUBIN,TOTAL 0.3 mg/dL (0.1-1.0); CALCIUM, TOTAL 8.7 mg/dL (8.8-10.5); CARBON DIOXIDE 29 mmol/L (22-29); CHLORIDE 107 mmol/L (98-107); CHOL/HDL RATIO 2.8 (4.2-7.3); CHOLESTEROL 135 mg/dL (131-200); CREATININE 1.16 mg/dL (0.60-1.30); GLOMERULAR FILTR. RATE CALC > 60 mL/min (>60); GLUCOSE,RANDOM 90 mg/dL (70-110); HDL CHOLESTEROL 49 mg/dL (40-60); LDL CHOL (CALC.) 74 mg/dL (0-130); POTASSIUM 4.4 mmol/L (3.5-5.1); SODIUM SERUM 141 mmol/L (136-145); THYROID STIMULATING HORMONE 0.88 uIU/mL (0.36-3.74); TOTAL PROTEIN, SERUM 6.7 g/dL (6.4-8.2); TRIGLYCERIDES 60 mg/dL (15-150); UREA NITROGEN, BLOOD 15 mg/dL (7-18)
[2018-05-28 10:26] VITALS: BP 128/77
[2018-05-28] MEDS: HYDROCHLOROTHIAZIDE 25 MG TABLET PO SCH (10:59)
[2018-05-28] MEDS: AmLODIPine BESYLATE 5 MG TABLET PO SCH (10:59)
[2018-05-28] MEDS: TAMSULOSIN HCL 0.4 MG CAPSULE PO SCH (10:59)
[2018-05-28] MEDS: DIVALPROEX SODIUM 500 MG ER TABLET PO SCH ×2 (10:59→16:49)
[2018-05-28] MEDS: OMEPRAZOLE 20 MG CAPSULE PO SCH (11:06)
[2018-05-28] MEDS: OLANZapine 10 MG TABLET PO SCH ×2 (11:07→16:49)
[2018-05-28] MEDS: CHOLECALCIFEROL (VIT D3) 1,000 UNITS TABLET PO SCH (11:22)
[2018-05-28] MEDS: FUROSEMIDE 20 MG TABLET PO SCH (11:22)
[2018-05-28] MEDS: DOCUSATE SODIUM 100 MG CAPSULE PO PRN (11:28)
[2018-05-28] MEDS: LOSARTAN POTASSIUM 25 MG TABLET PO SCH (12:19)
[2018-05-28 19:02] VITALS: BP 142/99
[2018-05-28] MEDS: MIRTAZAPINE 30 MG TABLET PO SCH (21:00)
[2018-05-29 08:24] VITALS: BP 145/90
[2018-05-29] MEDS: HYDROCHLOROTHIAZIDE 25 MG TABLET PO SCH (09:29)
[2018-05-29] MEDS: TAMSULOSIN HCL 0.4 MG CAPSULE PO SCH (09:29)
[2018-05-29] MEDS: LOSARTAN POTASSIUM 25 MG TABLET PO SCH (09:29)
[2018-05-29] MEDS: CHOLECALCIFEROL (VIT D3) 1,000 UNITS TABLET PO SCH (09:29)
[2018-05-29] MEDS: FUROSEMIDE 20 MG TABLET PO SCH (09:29)
[2018-05-29] MEDS: OMEPRAZOLE 20 MG CAPSULE PO SCH (09:29)
[2018-05-29] MEDS: DIVALPROEX SODIUM 500 MG ER TABLET PO SCH ×2 (09:29→17:06)
[2018-05-29] MEDS: AmLODIPine BESYLATE 5 MG TABLET PO SCH (09:29)
[2018-05-29] MEDS: OLANZapine 10 MG TABLET PO SCH ×2 (09:30→17:06)
[2018-05-29 17:08] VITALS: BP 147/82
[2018-05-29] MEDS: IBUPROFEN 400 MG TABLET PO PRN (17:08)
[2018-05-29 18:08] VITALS: BP 139/83
[2018-05-29] MEDS: MIRTAZAPINE 30 MG TABLET PO SCH (20:59)
[2018-05-30] MEDS: DIVALPROEX SODIUM 500 MG ER TABLET PO SCH ×2 (09:00→16:40)
[2018-05-30] MEDS: CHOLECALCIFEROL (VIT D3) 1,000 UNITS TABLET PO SCH (09:00)
[2018-05-30] MEDS: LOSARTAN POTASSIUM 25 MG TABLET PO SCH (09:00)
[2018-05-30] MEDS: HYDROCHLOROTHIAZIDE 25 MG TABLET PO SCH (09:00)
[2018-05-30] MEDS: OLANZapine 10 MG TABLET PO SCH ×2 (09:00→16:40)
[2018-05-30] MEDS: OMEPRAZOLE 20 MG CAPSULE PO SCH (09:00)
[2018-05-30] MEDS: AmLODIPine BESYLATE 5 MG TABLET PO SCH (09:00)
[2018-05-30] MEDS: TAMSULOSIN HCL 0.4 MG CAPSULE PO SCH (09:00)
[2018-05-30] MEDS: FUROSEMIDE 20 MG TABLET PO SCH (09:00)
[2018-05-30 11:42] VITALS: BP 145/92
[2018-05-30 21:09] VITALS: BP 136/68
[2018-05-30] MEDS: MIRTAZAPINE 30 MG TABLET PO SCH (21:30)
[2018-05-31] MEDS: IBUPROFEN 400 MG TABLET PO PRN (06:04)
[2018-05-31 06:05] VITALS: BP 140/75
[2018-05-31] MEDS: OMEPRAZOLE 20 MG CAPSULE PO SCH (09:29)
[2018-05-31] MEDS: FUROSEMIDE 20 MG TABLET PO SCH (09:29)
[2018-05-31] MEDS: AmLODIPine BESYLATE 5 MG TABLET PO SCH (09:29)
[2018-05-31] MEDS: DIVALPROEX SODIUM 500 MG ER TABLET PO SCH (09:29)
[2018-05-31] MEDS: LOSARTAN POTASSIUM 25 MG TABLET PO SCH (09:29)
[2018-05-31] MEDS: TAMSULOSIN HCL 0.4 MG CAPSULE PO SCH (09:29)
[2018-05-31] MEDS: CHOLECALCIFEROL (VIT D3) 1,000 UNITS TABLET PO SCH (09:30)
[2018-05-31] MEDS: OLANZapine 10 MG TABLET PO SCH (09:30)
[2018-05-31] MEDS: HYDROCHLOROTHIAZIDE 25 MG TABLET PO SCH (09:31)
[2018-05-31] MEDS: DOCUSATE SODIUM 100 MG CAPSULE PO PRN (09:34)
[2018-05-31 11:20] VITALS: BP 142/79
== END 2018-05-31 12:45 | disposition home or self-care (01) | DRG 750 ==
LOC: EMS 00:27 → 3EI 03:00
PROVIDERS: ADMIT Psychiatry & Neurology Child & Adolescent Psychiatry; ATTEND Psychiatry & Neurology Child & Adolescent Psychiatry
DX: F25.1 Schizoaffective disorder, depressive type (principal); I11.0 Hypertensive heart disease with heart failure; I50.9 Heart failure, unspecified; R45.851 Suicidal ideations; J45.909 Unspecified asthma, uncomplicated; F19.90 Other psychoactive substance use, unspecified, uncomplicated; E78.5 Hyperlipidemia, unspecified; E55.9 Vitamin D deficiency, unspecified; N40.0 Benign prostatic hyperplasia without lower urinary tract symptoms; M19.90 Unspecified osteoarthritis, unspecified site; K21.9 Gastro-esophageal reflux disease without esophagitis; F17.210 Nicotine dependence, cigarettes, uncomplicated; F11.90 Opioid use, unspecified, uncomplicated; Z88.8 Allergy status to other drugs, medicaments and biological substances; Z79.899 Other long term (current) drug therapy
CPT/HCPCS: 83036; 84443; 99285; G0480

== ENCOUNTER 2018-06-03 10:33 | Inpatient (IN) | payer MEDICAID ==
[~2018-06-03] VITALS: Ht 180.3 cm; Wt 129.3 kg
[~2018-06-03 10:33] MED LIST changes: -DSS100 PO; -NAPR250T4 PO
[2018-06-03] MEDS ORDERED: OLANZapine 5 MG TABLET PO ONE (11:15)
[2018-06-03 11:30] LABS: BASOPHILS % (AUTO) 0.5 % (0.0-2.0); EOSINOPHILS % (AUTO) 0.3 % (1.0-6.0); HEMATOCRIT 40.2 % (41-53); HEMOGLOBIN 13.4 g/dL (13.5-17.5); LYMPHOCYTES # (AUTO) 0.9 K/uL (1.0-4.8); LYMPHOCYTES % (AUTO) 10.6 % (22.0-44.0); MEAN CORPUSCULAR HEMOGLOBIN 28.9 pg (26.0-34.0); MEAN CORPUSCULAR HGB CONC 33.4 G/dL (31.0-37.0); MEAN CORPUSCULAR VOLUME 86 fL (80-100); MONOCYTES # (AUTO) 0.8 K/uL (0.1-1.0); MONOCYTES % (AUTO) 10.2 % (2.0-9.0); NEUTROPHILS # (AUTO) 6.3 K/uL (1.8-7.7); NEUTROPHILS % (AUTO) 78.4 % (40.0-70.0); PLATELET COUNT (AUTO) 211 K/uL (150-450); RED BLOOD CELL COUNT(AUTO) 4.65 MIL/uL (4.50-5.90); RED CELL DISTRIBUTION WIDTH 15.4 % (11.5-14.5)
[2018-06-03 11:43] LABS: ANION GAP 6 mmol/L (8-16); CALCIUM, TOTAL 8.6 mg/dL (8.8-10.5); CARBON DIOXIDE 30 mmol/L (22-29); CHLORIDE 102 mmol/L (98-107); CREATININE 1.14 mg/dL (0.60-1.30); GLOMERULAR FILTR. RATE CALC > 60 mL/min (>60); GLUCOSE,RANDOM 108 mg/dL (70-110); POTASSIUM 3.8 mmol/L (3.5-5.1); SODIUM SERUM 138 mmol/L (136-145); UREA NITROGEN, BLOOD 23 mg/dL (7-18)
[2018-06-03 11:50] LABS: ALANINE AMINOTRANSFERASE 29 U/L (12-78); ALBUMIN 3.8 g/dL (3.4-5.0); ALKALINE PHOSPHATASE 87 U/L (46-116); ASPARTATE AMINOTRANSFERASE 28 U/L (15-37); BILIRUBIN,TOTAL 0.6 mg/dL (0.1-1.0); TOTAL PROTEIN, SERUM 7.5 g/dL (6.4-8.2); VALPROIC ACID 19 mcg/mL (50-100)
[2018-06-03 12:49] LABS: AMPHET/METH SCREEN,URINE NEGATIVE (NEGATIVE); BARBITURATE SCREEN, URINE NEGATIVE (NEGATIVE); BENZODIAZEPINES SCREEN,URINE NEGATIVE (NEGATIVE); CANNABINOID SCREEN,URINE POSITIVE (NEGATIVE); COCAINE SCREEN,URINE NEGATIVE (NEGATIVE); METHADONE SCREEN, URINE NEGATIVE (NEGATIVE); OPIATE SCREEN,URINE NEGATIVE (NEGATIVE); PHENCYCLIDINE SCREEN,URINE NEGATIVE (NEGATIVE)
[2018-06-03] MEDS ORDERED: PNEUMOCOCCAL VACCINE POLYVALENT 0.5 ML VIAL [PPSV23] IM ONE (13:45)
[2018-06-03] MEDS ORDERED: LORazepam 2 MG TABLET PO PRN (14:30)
[2018-06-03] MEDS ORDERED: OLANZapine 5 MG RAPDIS TABLET PO PRN (14:30)
[2018-06-03] MEDS ORDERED: ZOLPIDEM TARTRATE 10 MG TABLET PO PRN (14:30)
[2018-06-03 17:43] VITALS: BP 141/74
[2018-06-03] MEDS: DIVALPROEX SODIUM 500 MG ER TABLET PO SCH (18:36)
[2018-06-03] MEDS: OLANZapine 10 MG TABLET PO SCH (18:39)
[2018-06-03] MEDS ORDERED: MAGNESIUM HYDROXIDE SUSPENSION 30 ML UDCUP PO PRN (19:00)
[2018-06-03] MEDS ORDERED: ACETAMINOPHEN 325 MG TABLET PO PRN (19:00)
[2018-06-03] MEDS ORDERED: IBUPROFEN 400 MG TABLET PO PRN (19:00)
[2018-06-03] MEDS ORDERED: MAG HYDROX/AL HYDROX/SIMETH ES 30 ML SUSPENSION UDCUP PO PRN (19:00)
[2018-06-03] MEDS ORDERED: NICOTINE 14 MG/24 HOUR PATCH TD PRN (19:00)
[2018-06-03] MEDS ORDERED: GuaiFENesin/D-METHORPHAN [SUGAR-FREE] 200-20MG/10 ML SYRUP UDCUP PO PRN (19:00)
[2018-06-03] MEDS ORDERED: DOCUSATE SODIUM 100 MG CAPSULE PO PRN (19:00)
[2018-06-03] MEDS ORDERED: ONDANSETRON HCL 4 MG TABLET PO PRN (19:00)
[2018-06-03] MEDS ORDERED: PETROLATUM,WHITE 71 GM JELLY TP PRN (19:00)
[2018-06-03] MEDS ORDERED: ALBUTEROL SULFATE HFA 90 MCG/PUFF 8 GM INHALER IH PRN (19:00)
[2018-06-03] MEDS ORDERED: LOPERAMIDE HCL 2 MG CAPSULE PO PRN (19:00)
[2018-06-03] MEDS ORDERED: CloNIDine HCL 0.1 MG TABLET PO PRN (19:00)
[2018-06-03] MEDS: MIRTAZAPINE 30 MG TABLET PO SCH (20:28)
[2018-06-04 01:10] VITALS: BP 114/63
[2018-06-04 07:54] LABS: BASOPHILS % (AUTO) 0.7 % (0.0-2.0); HEMATOCRIT 38.2 % (41-53); LYMPHOCYTES # (AUTO) 1.4 K/uL (1.0-4.8); LYMPHOCYTES % (AUTO) 15.5 % (22.0-44.0); MEAN CORPUSCULAR HEMOGLOBIN 29.2 pg (26.0-34.0); MEAN CORPUSCULAR HGB CONC 33.9 G/dL (31.0-37.0); MEAN CORPUSCULAR VOLUME 86 fL (80-100); MONOCYTES # (AUTO) 1.1 K/uL (0.1-1.0); MONOCYTES % (AUTO) 11.9 % (2.0-9.0); NEUTROPHILS # (AUTO) 6.5 K/uL (1.8-7.7); NEUTROPHILS % (AUTO) 70.9 % (40.0-70.0); PLATELET COUNT (AUTO) 201 K/uL (150-450); RED BLOOD CELL COUNT(AUTO) 4.44 MIL/uL (4.50-5.90); RED CELL DISTRIBUTION WIDTH 15.4 % (11.5-14.5)
[2018-06-04 08:41] VITALS: BP 160/90
[2018-06-04 08:46] LABS: ALANINE AMINOTRANSFERASE 25 U/L (12-78); ALBUMIN 3.1 g/dL (3.4-5.0); ALKALINE PHOSPHATASE 79 U/L (46-116); ANION GAP 1 mmol/L (8-16); ASPARTATE AMINOTRANSFERASE 18 U/L (15-37); BILIRUBIN,TOTAL 0.4 mg/dL (0.1-1.0); CALCIUM, TOTAL 8.5 mg/dL (8.8-10.5); CARBON DIOXIDE 33 mmol/L (22-29); CHLORIDE 107 mmol/L (98-107); CHOL/HDL RATIO 3.2 (4.2-7.3); CHOLESTEROL 142 mg/dL (131-200); CREATININE 1.04 mg/dL (0.60-1.30); GLOMERULAR FILTR. RATE CALC > 60 mL/min (>60); GLUCOSE,RANDOM 77 mg/dL (70-110); HDL CHOLESTEROL 45 mg/dL (40-60); LDL CHOL (CALC.) 87 mg/dL (0-130); POTASSIUM 4.5 mmol/L (3.5-5.1); SODIUM SERUM 141 mmol/L (136-145); THYROID STIMULATING HORMONE 1.08 uIU/mL (0.36-3.74); TOTAL PROTEIN, SERUM 6.1 g/dL (6.4-8.2); TRIGLYCERIDES 50 mg/dL (15-150); UREA NITROGEN, BLOOD 20 mg/dL (7-18)
[2018-06-04 08:50] LABS: HEMOGLOBIN A1C 5.4 % (4.5-6.2)
[2018-06-04] MEDS: OMEPRAZOLE 20 MG CAPSULE PO SCH (09:15)
[2018-06-04] MEDS: LOSARTAN POTASSIUM 25 MG TABLET PO SCH (09:15)
[2018-06-04] MEDS: OLANZapine 10 MG TABLET PO SCH ×2 (09:15→16:31)
[2018-06-04] MEDS: CHOLECALCIFEROL (VIT D3) 1,000 UNITS TABLET PO SCH (09:15)
[2018-06-04] MEDS: FUROSEMIDE 20 MG TABLET PO SCH (09:16)
[2018-06-04] MEDS: DIVALPROEX SODIUM 500 MG ER TABLET PO SCH ×2 (09:16→16:31)
[2018-06-04] MEDS: TAMSULOSIN HCL 0.4 MG CAPSULE PO SCH (09:16)
[2018-06-04] MEDS: HYDROCHLOROTHIAZIDE 25 MG TABLET PO SCH (09:16)
[2018-06-04] MEDS: AmLODIPine BESYLATE 5 MG TABLET PO SCH (09:16)
[2018-06-04 16:55] VITALS: BP 115/84
[2018-06-04] MEDS: MIRTAZAPINE 30 MG TABLET PO SCH (20:20)
[2018-06-05 08:49] VITALS: BP 121/60
[2018-06-05] MEDS: HYDROCHLOROTHIAZIDE 25 MG TABLET PO SCH (09:19)
[2018-06-05] MEDS: DIVALPROEX SODIUM 500 MG ER TABLET PO SCH ×2 (09:19→16:19)
[2018-06-05] MEDS: TAMSULOSIN HCL 0.4 MG CAPSULE PO SCH (09:19)
[2018-06-05] MEDS: FUROSEMIDE 20 MG TABLET PO SCH (09:19)
[2018-06-05] MEDS: AmLODIPine BESYLATE 5 MG TABLET PO SCH (09:19)
[2018-06-05] MEDS: CHOLECALCIFEROL (VIT D3) 1,000 UNITS TABLET PO SCH (09:19)
[2018-06-05] MEDS: OLANZapine 10 MG TABLET PO SCH ×2 (09:19→16:19)
[2018-06-05] MEDS: OMEPRAZOLE 20 MG CAPSULE PO SCH (09:20)
[2018-06-05] MEDS: LOSARTAN POTASSIUM 25 MG TABLET PO SCH (09:20)
[2018-06-05 09:25] VITALS: BP 132/86
[2018-06-05 16:23] VITALS: BP 128/76
[2018-06-05] MEDS: MIRTAZAPINE 30 MG TABLET PO SCH (20:32)
[2018-06-06 02:11] VITALS: BP 155/87
[2018-06-06 08:16] VITALS: BP 148/86
[2018-06-06] MEDS: LOSARTAN POTASSIUM 25 MG TABLET PO SCH (08:57)
[2018-06-06] MEDS: HYDROCHLOROTHIAZIDE 25 MG TABLET PO SCH (08:57)
[2018-06-06] MEDS: OMEPRAZOLE 20 MG CAPSULE PO SCH (08:57)
[2018-06-06] MEDS: OLANZapine 10 MG TABLET PO SCH ×2 (08:57→16:30)
[2018-06-06] MEDS: DIVALPROEX SODIUM 500 MG ER TABLET PO SCH ×2 (08:57→16:30)
[2018-06-06] MEDS: CHOLECALCIFEROL (VIT D3) 1,000 UNITS TABLET PO SCH (08:57)
[2018-06-06] MEDS: AmLODIPine BESYLATE 5 MG TABLET PO SCH (08:57)
[2018-06-06] MEDS: TAMSULOSIN HCL 0.4 MG CAPSULE PO SCH (08:57)
[2018-06-06] MEDS: FUROSEMIDE 20 MG TABLET PO SCH (08:57)
[2018-06-06] MEDS: FERROUS SULFATE 325 MG EC TABLET PO SCH (16:30)
[2018-06-06 17:30] VITALS: BP 157/94
[2018-06-06] MEDS: MIRTAZAPINE 30 MG TABLET PO SCH (20:28)
[2018-06-07 06:10] VITALS: BP 119/70
[2018-06-07] MEDS: FERROUS SULFATE 325 MG EC TABLET PO SCH (06:34)
[2018-06-07 08:27] VITALS: BP 122/76
[2018-06-07] MEDS: DIVALPROEX SODIUM 500 MG ER TABLET PO SCH (09:22)
[2018-06-07] MEDS ORDERED: FERR-89 PO (09:22)
[2018-06-07] MEDS: AmLODIPine BESYLATE 5 MG TABLET PO SCH (09:23)
[2018-06-07] MEDS: LOSARTAN POTASSIUM 25 MG TABLET PO SCH (09:23)
[2018-06-07] MEDS: TAMSULOSIN HCL 0.4 MG CAPSULE PO SCH (09:23)
[2018-06-07] MEDS: HYDROCHLOROTHIAZIDE 25 MG TABLET PO SCH (09:23)
[2018-06-07] MEDS: FUROSEMIDE 20 MG TABLET PO SCH (09:23)
[2018-06-07] MEDS: CHOLECALCIFEROL (VIT D3) 1,000 UNITS TABLET PO SCH (09:23)
[2018-06-07] MEDS: OLANZapine 10 MG TABLET PO SCH (09:23)
[2018-06-07] MEDS: OMEPRAZOLE 20 MG CAPSULE PO SCH (09:23)
== END 2018-06-07 12:58 | disposition home or self-care (01) | DRG 750 ==
LOC: EMS 10:35 → B2S 15:10
PROVIDERS: ADMIT Psychiatry & Neurology Child & Adolescent Psychiatry; ATTEND Psychiatry & Neurology Child & Adolescent Psychiatry
DX: F25.1 Schizoaffective disorder, depressive type (principal); F10.231 Alcohol dependence with withdrawal delirium; I11.0 Hypertensive heart disease with heart failure; I50.9 Heart failure, unspecified; E55.9 Vitamin D deficiency, unspecified; F12.10 Cannabis abuse, uncomplicated; J45.909 Unspecified asthma, uncomplicated; K21.9 Gastro-esophageal reflux disease without esophagitis; M19.90 Unspecified osteoarthritis, unspecified site; N40.0 Benign prostatic hyperplasia without lower urinary tract symptoms; Z87.891 Personal history of nicotine dependence; F11.90 Opioid use, unspecified, uncomplicated; Z88.8 Allergy status to other drugs, medicaments and biological substances; Z79.899 Other long term (current) drug therapy
CPT/HCPCS: 83036; 84443; 87081; 90686; 90732; G0480

== ENCOUNTER 2018-09-07 15:25 | Inpatient (IN) | payer MEDICAID ==
[~2018-09-07] VITALS: Ht 180.3 cm; Wt 136.2 kg
[~2018-09-07 15:25] MED LIST changes: +FERR-89 PO; -LOSA25TA16 PO; +LOSA25TA41 PO
[2018-09-07 16:34] LABS: BASOPHILS % (AUTO) 0.4 % (0.0-2.0); EOSINOPHILS % (AUTO) 0.3 % (1.0-6.0); HEMATOCRIT 48.6 % (41-53); HEMOGLOBIN 16.1 g/dL (13.5-17.5); LYMPHOCYTES # (AUTO) 2.8 K/uL (1.0-4.8); LYMPHOCYTES % (AUTO) 24.8 % (22.0-44.0); MEAN CORPUSCULAR HGB CONC 33.2 G/dL (31.0-37.0); MEAN CORPUSCULAR VOLUME 84 fL (80-100); MONOCYTES # (AUTO) 1.1 K/uL (0.1-1.0); MONOCYTES % (AUTO) 9.8 % (2.0-9.0); NEUTROPHILS # (AUTO) 7.3 K/uL (1.8-7.7); NEUTROPHILS % (AUTO) 64.7 % (40.0-70.0); PLATELET COUNT (AUTO) 233 K/uL (150-450); RED BLOOD CELL COUNT(AUTO) 5.77 MIL/uL (4.50-5.90); RED CELL DISTRIBUTION WIDTH 14.4 % (11.5-14.5)
[2018-09-07 16:49] LABS: ANION GAP 12 mmol/L (8-16); CALCIUM, TOTAL 9.6 mg/dL (8.8-10.5); CARBON DIOXIDE 27 mmol/L (22-29); CHLORIDE 101 mmol/L (98-107); CREATININE 1.25 mg/dL (0.60-1.30); GLOMERULAR FILTR. RATE CALC > 60 mL/min (>60); GLUCOSE,RANDOM 96 mg/dL (70-110); POTASSIUM 3.9 mmol/L (3.5-5.1); SODIUM SERUM 140 mmol/L (136-145); UREA NITROGEN, BLOOD 19 mg/dL (7-18)
[2018-09-07 16:54] LABS: ALANINE AMINOTRANSFERASE 22 U/L (12-78); ALBUMIN 4.3 g/dL (3.4-5.0); ALKALINE PHOSPHATASE 109 U/L (46-116); ASPARTATE AMINOTRANSFERASE 29 U/L (15-37); BILIRUBIN,TOTAL 0.7 mg/dL (0.1-1.0); TOTAL PROTEIN, SERUM 8.5 g/dL (6.4-8.2)
[2018-09-07] MEDS ORDERED: OLANZapine 5 MG RAPDIS TABLET PO PRN (18:15)
[2018-09-07] MEDS ORDERED: IBUPROFEN 600 MG TABLET PO ONE (18:30)
[2018-09-07 18:48] LABS: AMPHET/METH SCREEN,URINE NEGATIVE (NEGATIVE); BARBITURATE SCREEN, URINE NEGATIVE (NEGATIVE); BENZODIAZEPINES SCREEN,URINE NEGATIVE (NEGATIVE); CANNABINOID SCREEN,URINE POSITIVE (NEGATIVE); COCAINE SCREEN,URINE NEGATIVE (NEGATIVE); METHADONE SCREEN, URINE NEGATIVE (NEGATIVE); OPIATE SCREEN,URINE NEGATIVE (NEGATIVE)
[2018-09-07 18:56] LABS: PHENCYCLIDINE SCREEN,URINE NEGATIVE (NEGATIVE)
[2018-09-07 20:17] VITALS: BP 138/91
[2018-09-07] MEDS: ZOLPIDEM TARTRATE 10 MG TABLET PO PRN (20:44)
[2018-09-07] MEDS ORDERED: PETROLATUM,WHITE 71 GM JELLY TP PRN (20:45)
[2018-09-07] MEDS ORDERED: ALBUTEROL SULFATE HFA 90 MCG/PUFF 8 GM INHALER IH PRN (20:45)
[2018-09-07] MEDS ORDERED: DOCUSATE SODIUM 100 MG CAPSULE PO PRN (20:45)
[2018-09-07] MEDS ORDERED: CloNIDine HCL 0.1 MG TABLET PO PRN (20:45)
[2018-09-07] MEDS ORDERED: MAG HYDROX/AL HYDROX/SIMETH ES 30 ML SUSPENSION UDCUP PO PRN (20:45)
[2018-09-07] MEDS ORDERED: ONDANSETRON HCL 4 MG TABLET PO PRN (20:45)
[2018-09-07] MEDS ORDERED: NICOTINE 14 MG/24 HOUR PATCH TD PRN (20:45)
[2018-09-07] MEDS ORDERED: ACETAMINOPHEN 325 MG TABLET PO PRN (20:45)
[2018-09-07] MEDS ORDERED: LOPERAMIDE HCL 2 MG CAPSULE PO PRN (20:45)
[2018-09-07] MEDS ORDERED: GuaiFENesin/D-METHORPHAN [SUGAR-FREE] 200-20MG/10 ML SYRUP UDCUP PO PRN (20:45)
[2018-09-07] MEDS ORDERED: MAGNESIUM HYDROXIDE SUSPENSION 30 ML UDCUP PO PRN (20:45)
[2018-09-08 06:21] VITALS: BP 128/83
[2018-09-08 07:03] VITALS: BP 122/64
[2018-09-08] MEDS: IBUPROFEN 400 MG TABLET PO PRN ×2 (07:07→21:19)
[2018-09-08] MEDS: LORazepam 2 MG TABLET PO PRN ×2 (07:07→16:45)
[2018-09-08 08:03] VITALS: BP 126/78
[2018-09-08] MEDS: FAMOTIDINE 20 MG TABLET PO SCH ×2 (08:18→16:45)
[2018-09-08] MEDS: AmLODIPine BESYLATE 5 MG TABLET PO SCH (08:18)
[2018-09-08] MEDS: TAMSULOSIN HCL 0.4 MG CAPSULE PO SCH (08:19)
[2018-09-08] MEDS: HYDROCHLOROTHIAZIDE 25 MG TABLET PO SCH (08:19)
[2018-09-08] MEDS: LOSARTAN POTASSIUM 25 MG TABLET PO SCH (08:19)
[2018-09-08] MEDS: FUROSEMIDE 20 MG TABLET PO SCH (08:19)
[2018-09-08 08:42] LABS: BASOPHILS % (AUTO) 1.3 % (0.0-2.0); EOSINOPHILS % (AUTO) 3.7 % (1.0-6.0); HEMATOCRIT 45.2 % (41-53); HEMOGLOBIN 15.3 g/dL (13.5-17.5); LYMPHOCYTES # (AUTO) 2.6 K/uL (1.0-4.8); LYMPHOCYTES % (AUTO) 41.5 % (22.0-44.0); MEAN CORPUSCULAR HGB CONC 33.8 G/dL (31.0-37.0); MEAN CORPUSCULAR VOLUME 86 fL (80-100); MONOCYTES # (AUTO) 0.9 K/uL (0.1-1.0); MONOCYTES % (AUTO) 13.8 % (2.0-9.0); NEUTROPHILS # (AUTO) 2.5 K/uL (1.8-7.7); NEUTROPHILS % (AUTO) 39.7 % (40.0-70.0); PLATELET COUNT (AUTO) 201 K/uL (150-450); RED BLOOD CELL COUNT(AUTO) 5.28 MIL/uL (4.50-5.90); RED CELL DISTRIBUTION WIDTH 14.6 % (11.5-14.5)
[2018-09-08 08:49] LABS: HEMOGLOBIN A1C 5.5 % (4.5-6.2)
[2018-09-08 09:10] LABS: ALANINE AMINOTRANSFERASE 24 U/L (12-78); ALBUMIN 3.5 g/dL (3.4-5.0); ALKALINE PHOSPHATASE 91 U/L (46-116); ANION GAP 5 mmol/L (8-16); ASPARTATE AMINOTRANSFERASE 31 U/L (15-37); BILIRUBIN,TOTAL 0.6 mg/dL (0.1-1.0); CARBON DIOXIDE 35 mmol/L (22-29); CHLORIDE 103 mmol/L (98-107); CHOL/HDL RATIO 4.3 (4.2-7.3); CHOLESTEROL 182 mg/dL (131-200); CREATININE 1.16 mg/dL (0.60-1.30); FREE T4 (FREE THYROXINE) 0.73 ng/dL (0.76-1.46); GLOMERULAR FILTR. RATE CALC > 60 mL/min (>60); GLUCOSE,RANDOM 89 mg/dL (70-110); HDL CHOLESTEROL 42 mg/dL (40-60); LDL CHOL (CALC.) 130 mg/dL (0-130); POTASSIUM 4.1 mmol/L (3.5-5.1); SODIUM SERUM 143 mmol/L (136-145); TOTAL PROTEIN, SERUM 7.3 g/dL (6.4-8.2); TRIGLYCERIDES 52 mg/dL (15-150); UREA NITROGEN, BLOOD 24 mg/dL (7-18)
[2018-09-08] MEDS: DIVALPROEX SODIUM 500 MG ER TABLET PO SCH ×2 (13:41→21:19)
[2018-09-08] MEDS: OLANZapine 10 MG TABLET PO SCH ×2 (13:41→21:19)
[2018-09-08 16:00] VITALS: BP 130/70
[2018-09-08] MEDS: MIRTAZAPINE 30 MG TABLET PO SCH (21:19)
[2018-09-09 05:26] VITALS: BP 117/68
[2018-09-09 08:03] VITALS: BP 140/76
[2018-09-09] MEDS: OLANZapine 10 MG TABLET PO SCH ×2 (08:28→20:43)
[2018-09-09] MEDS: FUROSEMIDE 20 MG TABLET PO SCH (08:28)
[2018-09-09] MEDS: AmLODIPine BESYLATE 5 MG TABLET PO SCH (08:28)
[2018-09-09] MEDS: DIVALPROEX SODIUM 500 MG ER TABLET PO SCH ×2 (08:28→20:43)
[2018-09-09] MEDS: TAMSULOSIN HCL 0.4 MG CAPSULE PO SCH (08:28)
[2018-09-09] MEDS: FAMOTIDINE 20 MG TABLET PO SCH ×2 (08:29→16:13)
[2018-09-09] MEDS: LOSARTAN POTASSIUM 25 MG TABLET PO SCH (08:29)
[2018-09-09] MEDS: HYDROCHLOROTHIAZIDE 25 MG TABLET PO SCH (08:31)
[2018-09-09 16:00] VITALS: BP 122/68
[2018-09-09] MEDS: LORazepam 2 MG TABLET PO PRN (18:04)
[2018-09-09] MEDS: MIRTAZAPINE 30 MG TABLET PO SCH (20:43)
[2018-09-10 06:47] VITALS: BP 123/64
[2018-09-10 08:12] VITALS: BP 129/69
[2018-09-10] MEDS: HYDROCHLOROTHIAZIDE 25 MG TABLET PO SCH (08:18)
[2018-09-10] MEDS: TAMSULOSIN HCL 0.4 MG CAPSULE PO SCH (08:18)
[2018-09-10] MEDS: DIVALPROEX SODIUM 500 MG ER TABLET PO SCH ×2 (08:18→20:06)
[2018-09-10] MEDS: OLANZapine 10 MG TABLET PO SCH ×2 (08:18→20:06)
[2018-09-10] MEDS: AmLODIPine BESYLATE 5 MG TABLET PO SCH (08:18)
[2018-09-10] MEDS: LOSARTAN POTASSIUM 25 MG TABLET PO SCH (08:19)
[2018-09-10] MEDS: FAMOTIDINE 20 MG TABLET PO SCH ×2 (08:19→16:41)
[2018-09-10] MEDS: FUROSEMIDE 20 MG TABLET PO SCH (08:19)
[2018-09-10] MEDS: IBUPROFEN 400 MG TABLET PO PRN ×2 (08:51→16:43)
[2018-09-10 09:15] VITALS: BP 128/71
[2018-09-10 16:00] VITALS: BP 138/85
[2018-09-10] MEDS: LORazepam 2 MG TABLET PO PRN (16:41)
[2018-09-10] MEDS: MIRTAZAPINE 30 MG TABLET PO SCH (20:06)
[2018-09-11 01:38] VITALS: BP 132/89
[2018-09-11 09:42] VITALS: BP 119/64
[2018-09-11] MEDS: FAMOTIDINE 20 MG TABLET PO SCH ×2 (09:45→17:25)
[2018-09-11] MEDS: FUROSEMIDE 20 MG TABLET PO SCH (09:45)
[2018-09-11] MEDS: OLANZapine 10 MG TABLET PO SCH ×2 (09:45→20:07)
[2018-09-11] MEDS: HYDROCHLOROTHIAZIDE 25 MG TABLET PO SCH (09:45)
[2018-09-11] MEDS: DIVALPROEX SODIUM 500 MG ER TABLET PO SCH ×2 (09:45→20:08)
[2018-09-11] MEDS: LOSARTAN POTASSIUM 25 MG TABLET PO SCH (09:45)
[2018-09-11] MEDS: AmLODIPine BESYLATE 5 MG TABLET PO SCH (09:45)
[2018-09-11] MEDS: TAMSULOSIN HCL 0.4 MG CAPSULE PO SCH (09:45)
[2018-09-11] MEDS: IBUPROFEN 400 MG TABLET PO PRN (09:47)
[2018-09-11 16:00] VITALS: BP 138/89
[2018-09-11] MEDS: LORazepam 2 MG TABLET PO PRN (17:26)
[2018-09-11] MEDS: MIRTAZAPINE 30 MG TABLET PO SCH (20:07)
[2018-09-12 06:33] VITALS: BP 108/68
[2018-09-12 08:00] VITALS: BP 119/68
[2018-09-12] MEDS: OLANZapine 10 MG TABLET PO SCH ×2 (09:08→20:09)
[2018-09-12] MEDS: AmLODIPine BESYLATE 5 MG TABLET PO SCH (09:08)
[2018-09-12] MEDS: HYDROCHLOROTHIAZIDE 25 MG TABLET PO SCH (09:08)
[2018-09-12] MEDS: FAMOTIDINE 20 MG TABLET PO SCH ×2 (09:09→16:20)
[2018-09-12] MEDS: TAMSULOSIN HCL 0.4 MG CAPSULE PO SCH (09:09)
[2018-09-12] MEDS: DIVALPROEX SODIUM 500 MG ER TABLET PO SCH ×2 (09:09→20:09)
[2018-09-12] MEDS: LOSARTAN POTASSIUM 25 MG TABLET PO SCH (09:09)
[2018-09-12] MEDS: FUROSEMIDE 20 MG TABLET PO SCH (09:09)
[2018-09-12] MEDS: LORazepam 2 MG TABLET PO PRN (12:29)
[2018-09-12 16:20] VITALS: BP 142/70
[2018-09-12] MEDS: IBUPROFEN 400 MG TABLET PO PRN (16:20)
[2018-09-12] MEDS: MIRTAZAPINE 30 MG TABLET PO SCH (20:09)
[2018-09-13] MEDS: ZOLPIDEM TARTRATE 10 MG TABLET PO PRN (00:01)
[2018-09-13] MEDS: LORazepam 2 MG TABLET PO PRN (00:01)
[2018-09-13 00:20] VITALS: BP 144/90
[2018-09-13 08:03] VITALS: BP 145/94
[2018-09-13] MEDS: DIVALPROEX SODIUM 500 MG ER TABLET PO SCH (08:32)
[2018-09-13] MEDS: AmLODIPine BESYLATE 5 MG TABLET PO SCH (08:32)
[2018-09-13] MEDS: FAMOTIDINE 20 MG TABLET PO SCH (08:32)
[2018-09-13] MEDS: LOSARTAN POTASSIUM 25 MG TABLET PO SCH (08:32)
[2018-09-13] MEDS: HYDROCHLOROTHIAZIDE 25 MG TABLET PO SCH (08:33)
[2018-09-13] MEDS: OLANZapine 10 MG TABLET PO SCH (08:33)
[2018-09-13] MEDS: FUROSEMIDE 20 MG TABLET PO SCH (08:33)
[2018-09-13] MEDS: TAMSULOSIN HCL 0.4 MG CAPSULE PO SCH (08:33)
[2018-09-13] MEDS ORDERED: DIVA500T52 PO (12:13)
[2018-09-13] MEDS ORDERED: OLAN10TA3 PO (12:13)
[2018-09-13] MEDS ORDERED: FAMO-136 PO (12:13)
== END 2018-09-13 19:26 | disposition home or self-care (01) | DRG 750 ==
LOC: EMS 15:26 → B3A 18:48
DX: F25.0 Schizoaffective disorder, bipolar type (principal); I11.0 Hypertensive heart disease with heart failure; R45.851 Suicidal ideations; I50.9 Heart failure, unspecified; M19.90 Unspecified osteoarthritis, unspecified site; F11.90 Opioid use, unspecified, uncomplicated; F17.210 Nicotine dependence, cigarettes, uncomplicated; J44.9 Chronic obstructive pulmonary disease, unspecified; K21.9 Gastro-esophageal reflux disease without esophagitis; N40.0 Benign prostatic hyperplasia without lower urinary tract symptoms; Z91.5 Personal history of self-harm
CPT/HCPCS: 83036; 84439; 84443; G0480

== ENCOUNTER 2018-10-20 15:32 | Inpatient (IN) | payer MEDICAID ==
[~2018-10-20] VITALS: Ht 180.3 cm; Wt 136.1 kg
[~2018-10-20 15:32] MED LIST changes: +FAMO-136 PO; -FERR-89 PO; -OLAN10TA20 PO; +OLAN10TA3 PO; -OMEP20 PO; -VITAD1000 PO
[2018-10-20] MEDS ORDERED: OLAN20TA17 PO (18:24)
[2018-10-20] MEDS ORDERED: MIRT30TA PO (18:24)
[2018-10-20 18:40] LABS: EOSINOPHILS % (AUTO) 0.7 % (1.0-6.0); HEMATOCRIT 44.7 % (41-53); HEMOGLOBIN 15.1 g/dL (13.5-17.5); LYMPHOCYTES # (AUTO) 2.7 K/uL (1.0-4.8); LYMPHOCYTES % (AUTO) 28.7 % (22.0-44.0); MEAN CORPUSCULAR HEMOGLOBIN 28.4 pg (26.0-34.0); MEAN CORPUSCULAR HGB CONC 33.7 G/dL (31.0-37.0); MEAN CORPUSCULAR VOLUME 84 fL (80-100); MONOCYTES % (AUTO) 10.9 % (2.0-9.0); NEUTROPHILS # (AUTO) 5.5 K/uL (1.8-7.7); NEUTROPHILS % (AUTO) 58.7 % (40.0-70.0); PLATELET COUNT (AUTO) 256 K/uL (150-450); RED BLOOD CELL COUNT(AUTO) 5.31 MIL/uL (4.50-5.90); RED CELL DISTRIBUTION WIDTH 14.8 % (11.5-14.5)
[2018-10-20] MEDS ORDERED: OLANZapine 5 MG TABLET PO ONE (18:45)
[2018-10-20 18:50] LABS: ANION GAP 4 mmol/L (8-16); CALCIUM, TOTAL 9.4 mg/dL (8.8-10.5); CARBON DIOXIDE 33 mmol/L (22-29); CHLORIDE 103 mmol/L (98-107); CREATININE 1.12 mg/dL (0.60-1.30); GLOMERULAR FILTR. RATE CALC > 60 mL/min (>60); GLUCOSE,RANDOM 106 mg/dL (70-110); POTASSIUM 3.4 mmol/L (3.5-5.1); SODIUM SERUM 140 mmol/L (136-145); UREA NITROGEN, BLOOD 16 mg/dL (7-18)
[2018-10-20 18:56] LABS: ALANINE AMINOTRANSFERASE 35 U/L (12-78); ALBUMIN 3.9 g/dL (3.4-5.0); ALKALINE PHOSPHATASE 97 U/L (46-116); ASPARTATE AMINOTRANSFERASE 33 U/L (15-37); BILIRUBIN,TOTAL 0.4 mg/dL (0.1-1.0); TOTAL PROTEIN, SERUM 7.6 g/dL (6.4-8.2)
[2018-10-20] MEDS ORDERED: ZOLPIDEM TARTRATE 10 MG TABLET PO PRN (19:00)
[2018-10-20] MEDS ORDERED: OLANZapine 5 MG TABLET PO PRN (19:00)
[2018-10-20 19:09] LABS: VALPROIC ACID < 3 mcg/mL (50-100)
[2018-10-20 20:00] LABS: AMPHET/METH SCREEN,URINE NEGATIVE (NEGATIVE); BARBITURATE SCREEN, URINE NEGATIVE (NEGATIVE); BENZODIAZEPINES SCREEN,URINE NEGATIVE (NEGATIVE); CANNABINOID SCREEN,URINE POSITIVE (NEGATIVE); COCAINE SCREEN,URINE NEGATIVE (NEGATIVE); METHADONE SCREEN, URINE NEGATIVE (NEGATIVE); OPIATE SCREEN,URINE NEGATIVE (NEGATIVE)
[2018-10-20 20:01] LABS: PHENCYCLIDINE SCREEN,URINE NEGATIVE (NEGATIVE)
[2018-10-20] MEDS: OLANZapine 10 MG TABLET PO SCH (21:11)
[2018-10-20] MEDS: DIVALPROEX SODIUM 500 MG DR TABLET PO SCH (21:11)
[2018-10-21] VITALS (7 sets, daily range): BP systolic 137–163; BP diastolic 65–100
[2018-10-21] MEDS ORDERED: -PHARMACY VACCINE NOTE- MISC ONE (03:15)
[2018-10-21] MEDS: LORazepam 2 MG TABLET PO PRN (05:10)
[2018-10-21] MEDS ORDERED: BACITRACIN 28.4 GM OINTMENT TP PRN (06:45)
[2018-10-21] MEDS ORDERED: CloNIDine HCL 0.1 MG TABLET PO PRN (06:45)
[2018-10-21] MEDS ORDERED: BENZOCAINE/MENTHOL LOZENGE MM PRN (06:45)
[2018-10-21] MEDS ORDERED: ONDANSETRON HCL 4 MG TABLET PO PRN (06:45)
[2018-10-21] MEDS ORDERED: PETROLATUM,WHITE 71 GM JELLY TP PRN (06:45)
[2018-10-21] MEDS ORDERED: MAGNESIUM HYDROXIDE SUSPENSION 30 ML UDCUP PO PRN (06:45)
[2018-10-21] MEDS ORDERED: ALBUTEROL SULFATE HFA 90 MCG/PUFF 8 GM INHALER IH PRN (06:45)
[2018-10-21] MEDS ORDERED: MAG HYDROX/AL HYDROX/SIMETH ES 30 ML SUSPENSION UDCUP PO PRN (06:45)
[2018-10-21] MEDS ORDERED: LOPERAMIDE HCL 2 MG CAPSULE PO PRN (06:45)
[2018-10-21] MEDS: OMEPRAZOLE 20 MG CAPSULE PO SCH (08:28)
[2018-10-21] MEDS: DOCUSATE SODIUM 100 MG CAPSULE PO SCH (08:29)
[2018-10-21] MEDS: DIVALPROEX SODIUM 500 MG DR TABLET PO SCH ×2 (08:29→20:21)
[2018-10-21 08:41] LABS: HEMOGLOBIN A1C 5.7 % (4.5-6.2)
[2018-10-21 09:32] LABS: FREE T4 (FREE THYROXINE) 0.83 ng/dL (0.76-1.46); THYROID STIMULATING HORMONE 1.17 uIU/mL (0.36-3.74)
[2018-10-21] MEDS ORDERED: POTASSIUM CHLORIDE 20 MEQ ER TABLET PO ONE (09:45)
[2018-10-21] MEDS: ACETAMINOPHEN 325 MG TABLET PO PRN (12:12)
[2018-10-21] MEDS: LOSARTAN POTASSIUM 25 MG TABLET PO SCH (14:00)
[2018-10-21] MEDS: AmLODIPine BESYLATE 5 MG TABLET PO SCH (14:30)
[2018-10-21] MEDS: OLANZapine 10 MG TABLET PO SCH (20:21)
[2018-10-21] MEDS: IBUPROFEN 600 MG TABLET PO PRN (20:40)
[2018-10-22 05:37] VITALS: BP 119/78
[2018-10-22] MEDS: ACETAMINOPHEN 325 MG TABLET PO PRN ×2 (05:41→20:47)
[2018-10-22 08:40] VITALS: BP 152/90
[2018-10-22] MEDS: OMEPRAZOLE 20 MG CAPSULE PO SCH (08:54)
[2018-10-22] MEDS: DIVALPROEX SODIUM 500 MG DR TABLET PO SCH ×2 (08:55→20:41)
[2018-10-22] MEDS: FUROSEMIDE 20 MG TABLET PO SCH (08:55)
[2018-10-22] MEDS: LOSARTAN POTASSIUM 25 MG TABLET PO SCH (08:55)
[2018-10-22] MEDS: AmLODIPine BESYLATE 5 MG TABLET PO SCH (08:55)
[2018-10-22] MEDS: TAMSULOSIN HCL 0.4 MG CAPSULE PO SCH (08:55)
[2018-10-22] MEDS: DOCUSATE SODIUM 100 MG CAPSULE PO SCH (08:55)
[2018-10-22] MEDS: HYDROCHLOROTHIAZIDE 25 MG TABLET PO SCH (08:55)
[2018-10-22 09:27] LABS: ANION GAP 3 mmol/L (8-16); CALCIUM, TOTAL 8.8 mg/dL (8.8-10.5); CARBON DIOXIDE 33 mmol/L (22-29); CHLORIDE 105 mmol/L (98-107); CREATININE 0.79 mg/dL (0.60-1.30); GLOMERULAR FILTR. RATE CALC > 60 mL/min (>60); GLUCOSE,RANDOM 83 mg/dL (70-110); POTASSIUM 4.2 mmol/L (3.5-5.1); SODIUM SERUM 141 mmol/L (136-145); UREA NITROGEN, BLOOD 13 mg/dL (7-18)
[2018-10-22] MEDS: LORazepam 2 MG TABLET PO PRN (16:45)
[2018-10-22 18:19] VITALS: BP 141/89
[2018-10-22] MEDS: OLANZapine 10 MG TABLET PO SCH (20:41)
[2018-10-23] MEDS: IBUPROFEN 600 MG TABLET PO PRN (05:12)
[2018-10-23 05:35] VITALS: BP 146/98
[2018-10-23 08:11] VITALS: BP 153/86
[2018-10-23] MEDS: DIVALPROEX SODIUM 500 MG DR TABLET PO SCH (08:13)
[2018-10-23] MEDS: TAMSULOSIN HCL 0.4 MG CAPSULE PO SCH (08:13)
[2018-10-23] MEDS: HYDROCHLOROTHIAZIDE 25 MG TABLET PO SCH (08:13)
[2018-10-23] MEDS: DOCUSATE SODIUM 100 MG CAPSULE PO SCH (08:13)
[2018-10-23] MEDS: FUROSEMIDE 20 MG TABLET PO SCH (08:14)
[2018-10-23] MEDS: AmLODIPine BESYLATE 5 MG TABLET PO SCH (08:14)
[2018-10-23] MEDS: OMEPRAZOLE 20 MG CAPSULE PO SCH (08:14)
[2018-10-23] MEDS: LOSARTAN POTASSIUM 25 MG TABLET PO SCH (08:14)
[2018-10-23 11:55] VITALS: BP 140/82
== END 2018-10-23 12:25 | disposition home or self-care (01) | DRG 750 ==
LOC: EMS 15:33 → B2S 19:30
PROVIDERS: ADMIT Psychiatry & Neurology Psychiatry; ATTEND Psychiatry & Neurology Psychiatry
DX: F25.9 Schizoaffective disorder, unspecified (principal); R45.851 Suicidal ideations; Z68.41 Body mass index [BMI] 40.0-44.9, adult; E66.9 Obesity, unspecified; F17.200 Nicotine dependence, unspecified, uncomplicated; F12.90 Cannabis use, unspecified, uncomplicated; F32.9 Major depressive disorder, single episode, unspecified; F41.9 Anxiety disorder, unspecified; G47.00 Insomnia, unspecified; I10 Essential (primary) hypertension; J44.9 Chronic obstructive pulmonary disease, unspecified; M19.90 Unspecified osteoarthritis, unspecified site; D64.9 Anemia, unspecified; Z88.8 Allergy status to other drugs, medicaments and biological substances
CPT/HCPCS: 83036; 84439; 84443; G0480

== ENCOUNTER 2018-11-01 22:44 | Emergency (ER) | payer MEDICAID ==
[~2018-11-01] VITALS: Ht 180.3 cm; Wt 139.1 kg
[~2018-11-01 22:44] MED LIST changes: -FAMO-136 PO; -MIRT30 PO; -OLAN10TA3 PO; +OLAN20TA17 PO
[2018-11-02] MEDS ORDERED: PERTUSS(ACELL),DIPH,TET VAC/PF 0.5 ML VIAL IM ONE (00:45)
[2018-11-02] MEDS ORDERED: BACITRACIN 0.9 GM PACKET OINTMENT TP ONE (00:45)
[2018-11-02 01:13] LABS: BASOPHILS % (AUTO) 1.1 % (0.0-2.0); EOSINOPHILS % (AUTO) 1.2 % (1.0-6.0); HEMOGLOBIN 14.2 g/dL (13.5-17.5); LYMPHOCYTES # (AUTO) 1.6 K/uL (1.0-4.8); LYMPHOCYTES % (AUTO) 20.3 % (22.0-44.0); MEAN CORPUSCULAR HEMOGLOBIN 27.9 pg (26.0-34.0); MEAN CORPUSCULAR VOLUME 85 fL (80-100); MONOCYTES # (AUTO) 0.8 K/uL (0.1-1.0); MONOCYTES % (AUTO) 10.1 % (2.0-9.0); NEUTROPHILS # (AUTO) 5.2 K/uL (1.8-7.7); NEUTROPHILS % (AUTO) 67.3 % (40.0-70.0); PLATELET COUNT (AUTO) 262 K/uL (150-450); RED CELL DISTRIBUTION WIDTH 14.8 % (11.5-14.5)
[2018-11-02 01:22] LABS: ANION GAP 11 mmol/L (8-16); CALCIUM, TOTAL 8.7 mg/dL (8.8-10.5); CARBON DIOXIDE 28 mmol/L (22-29); CHLORIDE 104 mmol/L (98-107); CREATININE 0.99 mg/dL (0.60-1.30); GLOMERULAR FILTR. RATE CALC > 60 mL/min (>60); GLUCOSE,RANDOM 105 mg/dL (70-110); POTASSIUM 3.5 mmol/L (3.5-5.1); SODIUM SERUM 143 mmol/L (136-145); UREA NITROGEN, BLOOD 9 mg/dL (7-18)
[2018-11-02 01:28] LABS: ALANINE AMINOTRANSFERASE 33 U/L (12-78); ALBUMIN 3.8 g/dL (3.4-5.0); ALKALINE PHOSPHATASE 101 U/L (46-116); ASPARTATE AMINOTRANSFERASE 28 U/L (15-37); BILIRUBIN,TOTAL 0.3 mg/dL (0.1-1.0); TOTAL PROTEIN, SERUM 7.6 g/dL (6.4-8.2)
[2018-11-02 02:46] LABS: AMPHET/METH SCREEN,URINE NEGATIVE (NEGATIVE); BARBITURATE SCREEN, URINE NEGATIVE (NEGATIVE); BENZODIAZEPINES SCREEN,URINE NEGATIVE (NEGATIVE); CANNABINOID SCREEN,URINE POSITIVE (NEGATIVE); COCAINE SCREEN,URINE NEGATIVE (NEGATIVE); METHADONE SCREEN, URINE NEGATIVE (NEGATIVE); OPIATE SCREEN,URINE NEGATIVE (NEGATIVE)
[2018-11-02 02:47] LABS: PHENCYCLIDINE SCREEN,URINE NEGATIVE (NEGATIVE)
[2018-11-02 05:11] VITALS: BP 106/62
== END 2018-11-02 05:15 | disposition home or self-care (01) ==
LOC: EMS 22:45
DX: S01.81XA Laceration without foreign body of other part of head, initial encounter (principal); F10.129 Alcohol abuse with intoxication, unspecified; F19.10 Other psychoactive substance abuse, uncomplicated; I10 Essential (primary) hypertension; J45.909 Unspecified asthma, uncomplicated; M19.90 Unspecified osteoarthritis, unspecified site; F20.9 Schizophrenia, unspecified; F17.210 Nicotine dependence, cigarettes, uncomplicated; F15.90 Other stimulant use, unspecified, uncomplicated; F11.90 Opioid use, unspecified, uncomplicated; F12.90 Cannabis use, unspecified, uncomplicated; Z79.899 Other long term (current) drug therapy; Z88.8 Allergy status to other drugs, medicaments and biological substances; Y90.6 Blood alcohol level of 120-199 mg/100 ml; W01.198A Fall on same level from slipping, tripping and stumbling with subsequent striking against other object, initial encounter; Y93.89 Activity, other specified; Y92.89 Other specified places as the place of occurrence of the external cause; Y99.8 Other external cause status
CPT/HCPCS: 12011; 36415; 80053; 80307; 85025; 90471; 90715; 99283; 99406; G0480

== ENCOUNTER 2018-11-10 19:48 | Inpatient (IN) | payer MEDICAID ==
[~2018-11-10] VITALS: Ht 180.3 cm; Wt 133.0 kg
[2018-11-10 21:24] LABS: BASOPHILS % (AUTO) 0.6 % (0.0-2.0); EOSINOPHILS % (AUTO) 1.2 % (1.0-6.0); HEMATOCRIT 41.6 % (41-53); HEMOGLOBIN 13.7 g/dL (13.5-17.5); LYMPHOCYTES # (AUTO) 2.3 K/uL (1.0-4.8); LYMPHOCYTES % (AUTO) 23.5 % (22.0-44.0); MEAN CORPUSCULAR HEMOGLOBIN 28.3 pg (26.0-34.0); MEAN CORPUSCULAR HGB CONC 32.8 G/dL (31.0-37.0); MEAN CORPUSCULAR VOLUME 86 fL (80-100); MONOCYTES # (AUTO) 1.1 K/uL (0.1-1.0); MONOCYTES % (AUTO) 11.4 % (2.0-9.0); NEUTROPHILS # (AUTO) 6.3 K/uL (1.8-7.7); NEUTROPHILS % (AUTO) 63.3 % (40.0-70.0); PLATELET COUNT (AUTO) 235 K/uL (150-450); RED BLOOD CELL COUNT(AUTO) 4.82 MIL/uL (4.50-5.90)
[2018-11-10] MEDS ORDERED: ZOLPIDEM TARTRATE 10 MG TABLET PO PRN (21:30)
[2018-11-10 21:35] LABS: AMPHET/METH SCREEN,URINE NEGATIVE (NEGATIVE); BARBITURATE SCREEN, URINE NEGATIVE (NEGATIVE); BENZODIAZEPINES SCREEN,URINE NEGATIVE (NEGATIVE); CANNABINOID SCREEN,URINE NEGATIVE (NEGATIVE); COCAINE SCREEN,URINE NEGATIVE (NEGATIVE); METHADONE SCREEN, URINE NEGATIVE (NEGATIVE); OPIATE SCREEN,URINE NEGATIVE (NEGATIVE); PHENCYCLIDINE SCREEN,URINE NEGATIVE (NEGATIVE)
[2018-11-10 21:37] LABS: ANION GAP 13 mmol/L (8-16); CARBON DIOXIDE 26 mmol/L (22-29); CHLORIDE 104 mmol/L (98-107); GLOMERULAR FILTR. RATE CALC > 60 mL/min (>60); GLUCOSE,RANDOM 90 mg/dL (70-110); POTASSIUM 3.7 mmol/L (3.5-5.1); SODIUM SERUM 143 mmol/L (136-145); UREA NITROGEN, BLOOD 11 mg/dL (7-18)
[2018-11-10 22:37] LABS: ALANINE AMINOTRANSFERASE 22 U/L (12-78); ALBUMIN 3.5 g/dL (3.4-5.0); ALKALINE PHOSPHATASE 93 U/L (46-116); ASPARTATE AMINOTRANSFERASE 22 U/L (15-37); BILIRUBIN,TOTAL 0.4 mg/dL (0.1-1.0); TOTAL PROTEIN, SERUM 7.6 g/dL (6.4-8.2); VALPROIC ACID 10 mcg/mL (50-100)
[2018-11-11] MEDS: LORazepam 2 MG TABLET PO PRN ×2 (00:41→10:41)
[2018-11-11] MEDS: OLANZapine 5 MG RAPDIS TABLET PO PRN ×2 (00:41→10:41)
[2018-11-11 01:15] VITALS: BP 140/78
[2018-11-11 06:19] LABS: APPEARANCE,URINE CLEAR (CLEAR); BILIRUBIN,URINE NEGATIVE (NEGATIVE); GLUCOSE, URINE (UA) NEGATIVE (NEGATIVE); KETONES,URINE NEGATIVE (NEGATIVE); LEUKOCYTE ESTERASE ,URINE NEGATIVE (NEGATIVE); NITRATE,URINE NEGATIVE (NEGATIVE); OCCULT BLOOD,URINE NEGATIVE (NEGATIVE); PROTEIN,URINE NEGATIVE (NEGATIVE)
[2018-11-11 06:46] LABS: CHOL/HDL RATIO 3.5 (4.2-7.3)
[2018-11-11] MEDS ORDERED: LOPERAMIDE HCL 2 MG CAPSULE PO PRN (11:30)
[2018-11-11] MEDS ORDERED: PETROLATUM,WHITE 28 GM JELLY TP PRN (11:30)
[2018-11-11] MEDS ORDERED: BACITRACIN 28.4 GM OINTMENT TP PRN (11:30)
[2018-11-11] MEDS ORDERED: MAGNESIUM HYDROXIDE SUSPENSION 30 ML UDCUP PO PRN (11:30)
[2018-11-11] MEDS ORDERED: ALBUTEROL SULFATE HFA 90 MCG/PUFF 8 GM INHALER IH PRN (11:30)
[2018-11-11] MEDS ORDERED: ONDANSETRON HCL 4 MG TABLET PO PRN (11:30)
[2018-11-11] MEDS ORDERED: MAG HYDROX/AL HYDROX/SIMETH ES 30 ML SUSPENSION UDCUP PO PRN (11:30)
[2018-11-11] MEDS ORDERED: ACETAMINOPHEN 325 MG TABLET PO PRN (11:30)
[2018-11-11] MEDS ORDERED: BENZOCAINE/MENTHOL LOZENGE MM PRN (11:30)
[2018-11-11] MEDS ORDERED: CloNIDine HCL 0.1 MG TABLET PO PRN (11:30)
[2018-11-11 12:34] VITALS: BP 149/92
[2018-11-11] MEDS: IBUPROFEN 600 MG TABLET PO PRN (12:40)
[2018-11-11 16:32] VITALS: BP 133/82
[2018-11-11] MEDS ORDERED: OLANZapine 10 MG TABLET PO SCH (21:00)
[2018-11-11] MEDS: DIVALPROEX SODIUM 500 MG DR TABLET PO SCH (21:11)
[2018-11-12 02:30] VITALS: BP 152/98
[2018-11-12] MEDS: IBUPROFEN 600 MG TABLET PO PRN ×2 (02:40→14:25)
[2018-11-12] MEDS: LORazepam 2 MG TABLET PO PRN ×3 (02:43→14:25)
[2018-11-12] MEDS ORDERED: HYDROCHLOROTHIAZIDE 25 MG TABLET PO SCH (09:00)
[2018-11-12] MEDS ORDERED: DOCUSATE SODIUM 100 MG CAPSULE PO SCH (09:00)
[2018-11-12] MEDS ORDERED: AmLODIPine BESYLATE 5 MG TABLET PO SCH (09:00)
[2018-11-12] MEDS ORDERED: OMEPRAZOLE 20 MG CAPSULE PO SCH (09:00)
[2018-11-12] MEDS ORDERED: FUROSEMIDE 20 MG TABLET PO SCH (09:00)
[2018-11-12] MEDS: DIVALPROEX SODIUM 500 MG DR TABLET PO SCH (09:06)
[2018-11-12] MEDS: OLANZapine 5 MG RAPDIS TABLET PO PRN ×2 (09:06→14:25)
[2018-11-12] MEDS ORDERED: NICOTINE 21 MG/24 HOUR PATCH TD SCH (11:15)
[2018-11-12 13:35] VITALS: BP 137/97
[2018-11-12] MEDS ORDERED: DSS100 PO (16:31)
[2018-11-12] MEDS ORDERED: OMEP20 PO (16:32)
== END 2018-11-12 18:00 | disposition home or self-care (01) | DRG 750 ==
LOC: EMS 19:50 → 3EI 21:30
PROVIDERS: ADMIT Psychiatry & Neurology Psychiatry; ATTEND Psychiatry & Neurology Psychiatry
DX: F25.9 Schizoaffective disorder, unspecified (principal); L03.116 Cellulitis of left lower limb; R45.851 Suicidal ideations; G47.00 Insomnia, unspecified; I10 Essential (primary) hypertension; M19.90 Unspecified osteoarthritis, unspecified site; J44.9 Chronic obstructive pulmonary disease, unspecified; F12.90 Cannabis use, unspecified, uncomplicated; F11.90 Opioid use, unspecified, uncomplicated; F17.210 Nicotine dependence, cigarettes, uncomplicated; D64.9 Anemia, unspecified; E66.9 Obesity, unspecified; Z68.41 Body mass index [BMI] 40.0-44.9, adult; Z88.8 Allergy status to other drugs, medicaments and biological substances; Z79.899 Other long term (current) drug therapy; Z56.0 Unemployment, unspecified
CPT/HCPCS: 87081; G0480; J3535

== ENCOUNTER 2018-11-28 01:16 | Emergency (ER) | payer MEDICAID ==
[~2018-11-28] VITALS: Ht 180.3 cm; Wt 134.1 kg
[~2018-11-28 01:16] MED LIST changes: +DSS100 PO; -LOSA25TA41 PO; +OMEP20 PO; -TAMS0.4C32 PO
[2018-11-28] MEDS ORDERED: MIRT30 PO (01:23)
[2018-11-28 01:38] LABS: BASOPHILS % (AUTO) 0.7 % (0.0-2.0); EOSINOPHILS % (AUTO) 0.4 % (1.0-6.0); HEMOGLOBIN 14.5 g/dL (13.5-17.5); LYMPHOCYTES # (AUTO) 2.1 K/uL (1.0-4.8); LYMPHOCYTES % (AUTO) 16.7 % (22.0-44.0); MEAN CORPUSCULAR HEMOGLOBIN 28.3 pg (26.0-34.0); MEAN CORPUSCULAR HGB CONC 32.8 G/dL (31.0-37.0); MEAN CORPUSCULAR VOLUME 86 fL (80-100); MONOCYTES # (AUTO) 1.3 K/uL (0.1-1.0); MONOCYTES % (AUTO) 10.3 % (2.0-9.0); NEUTROPHILS # (AUTO) 9.1 K/uL (1.8-7.7); NEUTROPHILS % (AUTO) 71.9 % (40.0-70.0); PLATELET COUNT (AUTO) 341 K/uL (150-450); RED BLOOD CELL COUNT(AUTO) 5.12 MIL/uL (4.50-5.90); RED CELL DISTRIBUTION WIDTH 14.9 % (11.5-14.5)
[2018-11-28 01:46] LABS: ANION GAP 11 mmol/L (8-16); CALCIUM, TOTAL 9.6 mg/dL (8.8-10.5); CARBON DIOXIDE 29 mmol/L (22-29); CHLORIDE 103 mmol/L (98-107); CREATININE 1.27 mg/dL (0.60-1.30); GLOMERULAR FILTR. RATE CALC 59 mL/min (>60); GLUCOSE,RANDOM 84 mg/dL (70-110); SODIUM SERUM 143 mmol/L (136-145); UREA NITROGEN, BLOOD 21 mg/dL (7-18)
[2018-11-28 01:51] LABS: ALANINE AMINOTRANSFERASE 77 U/L (12-78); ALBUMIN 3.9 g/dL (3.4-5.0); ALKALINE PHOSPHATASE 99 U/L (46-116); ASPARTATE AMINOTRANSFERASE 66 U/L (15-37); BILIRUBIN,TOTAL 0.7 mg/dL (0.1-1.0); TOTAL PROTEIN, SERUM 8.2 g/dL (6.4-8.2); VALPROIC ACID 4 mcg/mL (50-100)
[2018-11-28] MEDS ORDERED: OLANZapine 5 MG RAPDIS TABLET PO PRN (03:00)
[2018-11-28] MEDS ORDERED: ZOLPIDEM TARTRATE 10 MG TABLET PO PRN (03:00)
[2018-11-28] MEDS ORDERED: LORazepam 2 MG TABLET PO PRN (03:00)
[2018-11-28] MEDS ORDERED: ACETAMINOPHEN 500 MG TABLET PO ONE (04:15)
[2018-11-28 04:17] LABS: APPEARANCE,URINE CLEAR (CLEAR); GLUCOSE, URINE (UA) NEGATIVE (NEGATIVE); KETONES,URINE TRACE mg/dL (NEGATIVE); LEUKOCYTE ESTERASE ,URINE NEGATIVE (NEGATIVE); NITRATE,URINE NEGATIVE (NEGATIVE); OCCULT BLOOD,URINE NEGATIVE (NEGATIVE); PH,URINE 5.5 (5.0-8.0); PROTEIN,URINE POS 1+ (NEGATIVE)
[2018-11-28 04:19] LABS: BILIRUBIN,URINE PRELIM. POSITIVE (NEGATIVE)
[2018-11-28 04:22] LABS: AMPHET/METH SCREEN,URINE POSITIVE (NEGATIVE); BARBITURATE SCREEN, URINE NEGATIVE (NEGATIVE); BENZODIAZEPINES SCREEN,URINE NEGATIVE (NEGATIVE); CANNABINOID SCREEN,URINE POSITIVE (NEGATIVE); COCAINE SCREEN,URINE NEGATIVE (NEGATIVE); METHADONE SCREEN, URINE NEGATIVE (NEGATIVE); OPIATE SCREEN,URINE NEGATIVE (NEGATIVE)
[2018-11-28 04:23] LABS: PHENCYCLIDINE SCREEN,URINE NEGATIVE (NEGATIVE)
[2018-11-28 04:25] LABS: BACTERIA,URINE None Seen /HPF (None Seen); RBC,URINE 0-2 /HPF (0-2)
[2018-11-28 04:26] LABS: SQUAMOUS EPITHELIAL CELL,UR Rare /LPF (None Seen)
[2018-11-28 16:13] VITALS: BP 141/84
== END 2018-11-28 16:18 | disposition home or self-care (01) ==
LOC: EMS 01:19
DX: F20.9 Schizophrenia, unspecified (principal); F19.10 Other psychoactive substance abuse, uncomplicated; F32.9 Major depressive disorder, single episode, unspecified; F17.210 Nicotine dependence, cigarettes, uncomplicated; J45.909 Unspecified asthma, uncomplicated; I10 Essential (primary) hypertension; M19.90 Unspecified osteoarthritis, unspecified site; F12.90 Cannabis use, unspecified, uncomplicated; F19.90 Other psychoactive substance use, unspecified, uncomplicated; F11.90 Opioid use, unspecified, uncomplicated; Z59.0 Homelessness; Z88.8 Allergy status to other drugs, medicaments and biological substances; Z79.899 Other long term (current) drug therapy
CPT/HCPCS: 36415; 80053; 80164; 80307; 81001; 85025; 99285; 99406; G0480